=== PATIENT | male | born 1950 | race Caucasian/White ===

== ENCOUNTER 2022-10-01 22:36 | Inpatient (IN) | payer OTHER, SELFPAY ==
[2022-10-01] VITALS (7 sets, daily range): BP systolic 160–196; BP diastolic 70–74; PULSE 97–103; RESP 20–26; TEMP 39.1; O2SAT 96–99
--- NOTE | ~2022-10-01 | XR_ITS ---
Portable chest x-ray Comparison: None Clinical History: Dyspnea Findings: There is minimal haziness in the perihilar regions. No pleural effusion or pneumothorax. Cardiomediastinal silhouette is unremarkable. Bones and soft tissues are unremarkable. Impression: Probable minimal bibasilar pulmonary edema. Correlate clinically for infection. Reviewed, dictated and finalized at [facility]. Impression: Probable minimal bibasilar pulmonary edema. Correlate clinically for infection.
--- NOTE | ~2022-10-01 | XR_ITS ---
Portable chest x-ray Comparison: 10/01/2022 Clinical History: Dyspnea Findings: There is probable minimal bibasilar haziness. No pleural effusion or pneumothorax. Cardio mediastinal silhouette is stable. Bones and soft tissues are unremarkable. Impression: Minimal bibasilar haziness. Correlate for mild pulmonary edema. Reviewed, dictated and finalized at [facility]. Impression: Minimal bibasilar haziness. Correlate for mild pulmonary edema.
--- NOTE | ~2022-10-01 | XR_ITS ---
Portable chest x-ray Comparison: 10/04/2022 Clinical History: Shortness of breath Findings: Questionable minimal bibasilar pulmonary edema. Cardiomediastinal silhouette is stable. B ones and soft tissues are unremarkable. Impression: Questionable minimal bibasilar pulmonary edema. Reviewed, dictated and finalized at location . Impression: Questionable minimal bibasilar pulmonary edema.
[2022-10-01] MEDS: IPRATROPIUM BR 0.02% INH SOLN 0.5 MG/2.5 ML VIAL INHALATION (22:55)
[2022-10-01] MEDS: ALBUTEROL SULFATE NEB 2.5 MG/3 ML INH INHALATION (22:55)
[2022-10-01 23:02] LABS: Alveolar/Arterial O2 Gradient 190.1 mmHg; Base Excess ABG -2.4 mEq/l (+/-2.0); Fractional Inspired Oxygen 45 %; HCO3 ABG 22.2 mEq/l (22.0-26.0); Oxygen Content ABG 13.9 %vol (16.0-22.0); Oxygen Saturation ABG 96.7 % (95.0-100.0); Oxyhemoglobin 92.3 % THb (90.0-100.0); PCO2 ABG 37.6 mmHg (35.0-45.0); PO2 FiO2 Ratio Arterial Blood 1.96 %; Total Hemoglobin 10.6 g/dL (12.0-18.0)
[2022-10-01 23:03] LABS: Device NON-INVASIVE VENT; Non-Invasive Expiratory Pressure 6 CMH2O; Non-Invasive Inspiratory Pressure 12 CMH2O; Non-Invasive Vent Rate 14 /MIN; Site Drawn RIGHT BRACHIAL
[2022-10-01 23:13] LABS: Basophils Percent Auto 0.6 % (0.2-1.2); Eosinophils Percent Auto 0.3 % (0-4.4); Hematocrit 33.7 % (42.0-52.0); Hemoglobin 10.3 g/dL (14.0-18.0); Immature Granulocyte Absolute 0.02 K/mm3 (0.00-0.031); Immature Granulocyte Percent A 0.3 % (0-0.5); Lymphocytes Percent Auto 8.8 % (18.3-44.2); Mean Corpuscular HGB Conc 30.6 g/dl (32-36); Mean Corpuscular Hemoglobin 29.8 pg (26-34); Mean Corpuscular Volume 97.4 fl (80-100); Monocytes Absolute Auto 0.5 K/mm3 (0.1-0.6); Monocytes Percent Auto 6.8 % (2.6-8.5); Neutrophils Absolute Auto 5.7 K/mm3 (1.3-6.7); Neutrophils Percent Auto 83.2 % (45.5-73.1); Platelet Count Result 300 k/mm3 (150-375); Red Blood Count 3.46 M/mm3 (4.6-6.20); Red Cell Distribution Width 18.6 % (11.5-14.5); White Blood Count 6.8 K/mm3 (4.5-10.0)
--- NOTE | 2022-10-01 23:13 | ECG_ITS ---
Measurements Intervals [place] Rate: 99 P: 71 [place]: 197 QRS: 91 QRSD: 104 T: 256 QT: 362 QTc: 466 Interpretive Statements SINUS RHYTHM BORDERLINE RIGHT AXIS DEVIATION [QRS AXIS > 90] LEFT VENTRICULAR HYPERTROPHY WITH SECONDARY REPOLARIZATION ABNORMALITY ABNORMAL ECG NO PREVIOUS ECG AVAILABLE FOR COMPARISON Electronically Signed On 10-02-2022 12:59:41 CDT by Obdulio Lynn M.D.
[2022-10-01 23:25] LABS: Alanine Aminotransferase 26 U/L (6-50); Albumin Level 3.6 g/dL (3.5-5.1); Alkaline Phosphatase 107 U/L (38-126); Anion Gap 15 mmol/L (8-16); Aspartate Amino Transferase 38 U/L (17-59); Bilirubin,Total 0.3 mg/dL (0.2-1.3); Blood Urea Nitrogen 104 mg/dL (9-20); Carbon Dioxide 20 mmol/L (22-30); Chloride 97 mmol/L (98-107); Estimated CRCL calculation 6 ml/min; Estimated Glomerular Filt Rate 5; Glucose 152 mg/dL (65-110); Lactic Acid Reflex 0.9 mmol/L (0.7-2.0); Magnesium 2.4 mg/dL (1.6-2.3); Potassium 4.3 mmol/L (3.4-5.0); Sodium 132 mmol/L (137-145)
[2022-10-01 23:27] LABS: INR 1.1; Prothrombin Time 14.6 Seconds (11.1-14.7)
[2022-10-01 23:28] LABS: Partial Thromboplastin Time 36.7 SECONDS (22.3-36.8)
[2022-10-02] VITALS (29 sets, daily range): BP systolic 125–170; BP diastolic 53–69; PULSE 80–106; RESP 18–28; TEMP 36–36.9; O2SAT 93–100
[2022-10-02 00:05] LABS: Influenza A QL RT-PCR Negative (Negative); Influenza B QL RT-PCR Negative (Negative); SARS-CoV-2 RNA PCR Negative (Negative)
[2022-10-02 00:11] LABS: Procalcitonin 0.4 ng/mL
[2022-10-02 00:19] LABS: NT Pro B Type Natriuretic Pept 16300 pg/mL (19.9-100); Troponin I 0.052 ng/mL (0.000-0.034)
[2022-10-02 00:34] LABS: Appearance Urine Clear (Clear); Bacteria Urine None Seen /hpf; Bilirubin Urine Negative (Negative); Blood Urine Negative (Negative); Color Urine Yellow (Yellow); Glucose Urine UA 2+ mg/dL (Negative); Ketones Urine Negative (Negative); Leukocyte Esterase Ur Negative LEU/UL (Negative); Nitrate Urine Negative (Negative); Non Pathogenic Casts 0-2; Protein Urine 3+ mg/dL (Negative); Specific Grav Ur 1.014 (1.001-1.035); Squamous Epithelial Cell Urine None seen /hpf (Few); Urobilinogen Urine 0.2 mg/dL (<2.0); WBC Urine 0-5 /hpf
--- NOTE | 2022-10-02 00:40 | ED.GENADULT ---
HPI - General Adult General Chief complaint: Shortness of Breath/Dyspnea Stated complaint: SOB; MISSED HEMO-DIALYSIS; ON CPAP Time Seen by Provider: 10/01/22 22:38 History of Present Illness HPI narrative: Call patient 72-year-old gentleman who presents emergency department with chief complaint of shortness of breath Failure. Patient has history of peritoneal dialysis and only completed 1 hour of his cycle the patient reports that he started getting very short of breath when EMS was called and the patient was placed on CPAP in the field. The patient denies any chest pain and reports that his shortness of breath is improved on BiPAP. Related Data Home Medications Medication Instructions Recorded Confirmed amlodipine 5 mg tablet 5 mg PO BID 03/13/19 03/13/19 bupropion HCl 150 mg 24 hr tablet, 150 mg PO DAILY 03/13/19 03/13/19 extended release ferrous sulfate 325 mg (65 mg 325 mg PO BID 03/13/19 03/13/19 iron) tablet glipizide 5 mg tablet 5 mg PO BID 03/13/19 03/13/19 hydrochlorothiazide 25 mg tablet 12.5 mg PO TID 03/13/19 03/13/19 rosuvastatin 20 mg tablet 20 mg PO DAILY 03/13/19 03/13/19 tamsulosin 0.4 mg capsule 0.4 mg PO EVERY OTHER DAY 03/13/19 03/13/19 clonidine 0.2 mg/24 hr weekly 10/02/22 transdermal patch clopidogrel 75 mg tablet mg 10/02/22 furosemide 80 mg tablet mg 10/02/22 hydralazine 50 mg tablet mg 10/02/22 hydrocodone 5 mg-acetaminophen 325 tablet 10/02/22 mg tablet isosorbide mononitrate 30 mg mg PO 10/02/22 tablet,extended release 24 hr nifedipine 90 mg tablet,extended mg PO 10/02/22 release 24 hr sevelamer carbonate 800 mg tablet mg 10/02/22 Allergies Allergy/AdvReac Type Severity Reaction Status Date / Time Sulfa (Sulfonamide Allergy Swelling Verified 03/13/19 14:17 Antibiotics) Review of Systems Review of Systems: A 10 system review of systems was completed on the patient and is negative except for what is stated in the HPI. Nursing and ancillary documentation was reviewed. Exam Narrative: GENERAL: Well-appearing, well-nourished, and in no acute distress. HEAD: Normocephalic, atraumatic. EYES: PERRLA and EOMI. 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 Mucous membranes moist. NECK: Supple. CHEST: Clear to auscultation. No respiratory distress. HEART: Regular rate and rhythm. No murmur heard. Normal peripheral pulses. ABDOMEN: Soft, nontender, nondistended, normal active bowel sounds. EXTREMITIES: Normal range of motion. No edema. SKIN: Warm, dry, no rash. NEURO: No focal deficits. Alert and oriented x3. PSYCH: Normal mood and affect. Course Vital Signs Vital signs: Vital Signs Temperature 39.1 C H 10/01/22 22:33 Pulse Rate 100 10/01/22 22:33 Respiratory Rate 23 H 10/01/22 22:33 Blood Pressure 196/71 H 10/01/22 22:33 Oxygen Delivery CPAP 10/01/22 22:33 Temperature 39.1 C H 10/01/22 22:33 Pulse Rate 106 H 10/02/22 00:46 Respiratory Rate 28 H 10/02/22 00:46 Blood Pressure 154/68 H 10/02/22 00:46 Pulse Oximetry 98 10/02/22 00:46 Oxygen Delivery BiPAP 10/01/22 23:01 Fraction of Inspired Oxygen 40 10/01/22 23:01 Medical Decision Making Vital Signs Vital Signs: Vital Signs Temperature 39.1 C H 10/01/22 22:33 Pulse Rate 100 10/01/22 22:33 Respiratory Rate 23 H 10/01/22 22:33 Blood Pressure 196/71 H 10/01/22 22:33 Oxygen Delivery CPAP 10/01/22 22:33 Temperature 39.1 C H 10/01/22 22:33 Pulse Rate 106 H 10/02/22 00:46 Respiratory Rate 28 H 10/02/22 00:46 Blood Pressure 154/68 H 10/02/22 00:46 Pulse Oximetry 98 10/02/22 00:46 Oxygen Delivery BiPAP 10/01/22 23:01 Fraction of Inspired Oxygen 40 10/01/22 23:01 Lab Data 10/01/22 23:02 10/01/22 23:02 Labs: Lab Results 10/01/22 10/01/22 10/01/22 Range/Units 22:53 23:02 23:22 WBC 6.8 (4.5-10.0) K/mm3 RBC 3.4
[2022-10-02 00:43] LABS: Add Urine Microscopic? YES
[2022-10-02] MEDS: cefTRIAXone 2 GM/NS 100 ML 2 GM/100 ML BAG IVPB (01:12)
--- NOTE | 2022-10-02 01:51 | PM.IMHP ---
H&P: HPI History of Present Illness Date/Time: 10/02/22 01:51 Chief Complaint: Shortness of breath Narrative: 72-year-old male with a past medical history of diabetes mellitus, CHF, COPD with continued tobacco use, obstructive sleep apnea and end-stage renal disease on peritoneal dialysis who presented to the ER via EMS due to shortness of breath. Patient reports that he has had a couple of days of increasing shortness of breath associated with cough productive of white sputum. His symptoms acutely worsened about an hour prior to presentation while he was receiving dialysis. His had to terminate his dialysis session 1 hour in to a 9 hour session. She reports that he green dialysate bag during dialysis. He reports that he had similar symptoms to this recently and that the doctors gave him a dose of something through his IV and he was able to go home. He keeps asking me to give him a dose of something there is IV so that he can go home. I tried to tell patient he could not go home as he has a temperature of a 102.4?. He denies having any fevers or chills at home. He had checked his temperature just prior to starting his peritoneal dialysis is evening his temperature was 98.6?. He denies any nausea or vomiting. He reports a good appetite despite his end-stage renal disease. He has been having normal bowel movements he still produces about a L of urine a day. He denies any dysuria or changes in urinary frequency. He does continue to smoke. He does use a CPAP at night due to his history of obstructive sleep apnea. reports that his glucoses have been stable for the most part he has had a few ups and Downs. He does have a wound to his right ring finger. He got his finger caught in a rotor 2 weeks ago. The finger was stitched any followed up with a specialist at [place]. He has a bandage covering it. They have not noticed any drainage from his finger. He still has a couple of sutures in place. They stated that the surgeon did not tell him when to have the sutures removed. The patient receives all of this medical care at [facility]. He was brought to our facility due to his critical illness. Source of information is ER report and report from the patient and his (with the patient's permission). provides the majority of his medical history. Per patient provide the patient has been on peritoneal dialysis since November of 2020. 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 Fleming. He did try hemodialysis earlier this year but did not tolerate hemodialysis. His reports that he is independent in all activities of daily living and is quite active. Review of Systems Review of Systems: 12 systems were reviewed with pertinent positives and negatives per HPI. Except as documented in the HPI, all other systems were reviewed and are negative. FORMERLY [facility], [facility] Past Medical History Medical History (Updated 10/02/22 @ 08:21 by Naima Lundy DO) CHF (congestive heart failure) COPD (chronic obstructive pulmonary disease) Coronary artery disease With tortuous LAD, the patient's reports that the patient has 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 He states that he was originally supposed to have bypass surgery but they opted for stent placement. Diabetes mellitus ESRD (end stage renal disease) on dialysis due to DM Essential hypertension DAVON on CPAP Venous stasis dermatitis of both lower extremities Surgical History Surgical History (Updated 10/02/22 @ 08:21 by Naima Lundy DO) History of eye enucleation left History of heart artery stent (~03/2022) Peritoneal dialysis catheter in place Family History Family History (Updated 10/02/22 @ 02:04 by Naima Lundy DO) Other Diabetes mellitus Hypertension Social History Social History (Updated 10/02/22 @ 07:46 by Naima Lundy DO) Social History: The patient lives in [place] with
[2022-10-02] MEDS: AZITHROMYCIN 500 MG/NS 250 ML 500 MG/250 ML BAG 250 MG IVPB (01:54)
--- NOTE | 2022-10-02 03:02 | ADMGEN ---
This patient, Obinna Murphy, was admitted to IMU Room 214-01. Patient/family oriented to hospital policies and general routines including ID bracelet, bed and alarms, visiting hours, pain management, procedures, bathroom and other care routines, personal items, smoking policy, room service/diet, and visiting hours. Information on how to activate the Rapid Response Team has been discussed. Patient/Family are encouraged to report perceived risks to care and to ask questions if they do not understand what they are told or what they should do.
[2022-10-02] MEDS: FUROSEMIDE INJ 40 MG/4 ML VIAL IV PUSH ×3 (04:34→16:40)
[2022-10-02] MEDS: IPRATROPIUM BR 0.02% INH SOLN 0.5 MG/2.5 ML VIAL INHALATION ×5 (04:38→21:03)
[2022-10-02] MEDS: ALBUTEROL SULFATE NEB 2.5 MG/3 ML INH INHALATION ×5 (04:38→21:03)
[2022-10-02] MEDS: SEVELAMER CARBONATE 800 MG TABLET PO ×3 (08:45→16:40)
[2022-10-02] MEDS: TAMSULOSIN HCL 0.4 MG CAPSULE PO (08:46)
[2022-10-02] MEDS: FERROUS SULFATE 325 MG TABLET DR PO ×2 (08:46→16:40)
[2022-10-02] MEDS: HEPARIN SODIUM 5,000 UNITS/ML VIAL 5000 UNITS SUB-Q ×2 (08:48→20:15)
[2022-10-02 09:12] LABS: Hematocrit 28.1 % (42.0-52.0); Hemoglobin 8.4 g/dL (14.0-18.0); Mean Corpuscular HGB Conc 29.9 g/dl (32-36); Mean Corpuscular Hemoglobin 29.1 pg (26-34); Mean Corpuscular Volume 97.2 fl (80-100); Mean Platelet Volume 10.2 fl (7.4-10.4); Platelet Count Result 295 k/mm3 (150-375); Red Blood Count 2.89 M/mm3 (4.6-6.20); Red Cell Distribution Width 18.5 % (11.5-14.5)
[2022-10-02 09:17] LABS: Anion Gap 14 mmol/L (8-16); Blood Urea Nitrogen 105 mg/dL (9-20); Calcium 6.7 mg/dL (8.4-10.2); Carbon Dioxide 18 mmol/L (22-30); Chloride 100 mmol/L (98-107); Estimated CRCL calculation 6 ml/min; Estimated Glomerular Filt Rate 5; Glucose 152 mg/dL (65-110); Magnesium 2.4 mg/dL (1.6-2.3); Phosphorus 7.5 mg/dL (2.5-4.5); Potassium 4.6 mmol/L (3.4-5.0); Sodium 132 mmol/L (137-145)
[2022-10-02] MEDS: NEOMYCIN/POLYMYXIN/BACITRACIN OINTMENT 15 GM TUBE 1 APPLIC TOPICAL (10:40)
--- NOTE | 2022-10-02 12:52 | P.CONNP_ITS ---
Assessment and Plan Assessment and plan (1) End stage renal disease: Code(s): N18.6 - End stage renal disease Status: Chronic Assessment and Plan: * resume CCPD tonight * follow electrolytes, volume status, and clearance * reasonable residual renal function - continue diuretics (2) Sepsis: Qualifiers: Acute respiratory failure type: with hypoxia Sepsis acute organ dysfunction status: with acute organ dysfunction Sepsis type: sepsis due to unspecified organism Severe sepsis acute organ dysfunction type: acute respiratory failure Severe sepsis shock status: without septic shock Qualified Code(s): A41.9 - Sepsis, unspecified organism; R65.20 - Severe sepsis without septic shock; J96.01 - Acute respiratory failure with hypoxia Code(s): A41.9 - Sepsis, unspecified organism Status: Acute Assessment and Plan: * as evidence by fever tachypnea, tachycardia and respiratory failure with associated hypoxia on admission * presumed source is pneumonia (based on imaging to date) * follow culture data * check PD fluid (although patient and report fluid was clear) * on antibiotics (3) Acute respiratory failure with hypoxia: Code(s): J96.01 - Acute respiratory failure with hypoxia Status: Acute Assessment and Plan: * suspet multifactorial: * COPD exacerbation * pneumonia * lnown history of DAVON * mild component of fluid issues * supplemental oxygen * BiPAP support as needed * continue current therapy (4) Pneumonia: Qualifiers: Laterality: bilateral Lung location: lower lobe of lung Pneumonia type: due to unspecified organism Qualified Code(s): J18.9 - Pneumonia, unspecified organism Code(s): J18.9 - Pneumonia, unspecified organism Status: Acute Assessment and Plan: * based on admission imaging and clinical symptoms * respiratory support * IV antibiotucs * follow culture data (5) Hypertension: Code(s): I10 - Essential (primary) hypertension Status: Chronic Assessment and Plan: * reasonable control at this time * follow trend of hemodynamics (6) Anemia: Code(s): D64.9 - Anemia, unspecified Status: Chronic Assessment and Plan: * due to ESRD and worsened by acute illness * Epogen 3x/week while hospitalized * follow trend of H/H (7) Diabetes mellitus: Qualifiers: Chronic kidney disease stage: on chronic dialysis Diabetes mellitus complication detail: with chronic kidney disease Diabetes mellitus complication status: with kidney complications Diabetes mellitus meterman insulin use: with meterman use Diabetes mellitus type: type 2 Qualified Code(s): E11.22 - Type 2 diabetes mellitus with diabetic chronic kidney disease; N18.6 - End stage renal disease; Z79.4 - intermediate frame tender (current) use of insulin; Z99.2 - Dependence on renal dialysis Code(s): E11.9 - Type 2 diabetes mellitus without complications Status: Chronic Assessment and Plan: * follow accu-cheks * glycemic control per hospitalists Long extensive discussion (> 20 min) with the patient as well as her at bedside regarding the ongoing medical issues/problems at this time and the current plan of care/interventions being done in an effort to optimize his overall clinical status. They both appeared to voice understanding. I will continue follow the patient with you while he may need hospitalized make further recommendations as needed. Thank you for allowing me to participate in the care of this patient.
--- NOTE | 2022-10-02 12:52 | PM.CNNEP ---
Assessment and Plan Assessment and plan (1) End stage renal disease: Code(s): N18.6 - End stage renal disease Status: Chronic Assessment and Plan: resume CCPD tonight follow electrolytes, volume status, and clearance reasonable residual renal function - continue diuretics (2) Sepsis: Qualifiers: Acute respiratory failure type: with hypoxia Sepsis acute organ dysfunction status: with acute organ dysfunction Sepsis type: sepsis due to unspecified organism Severe sepsis acute organ dysfunction type: acute respiratory failure Severe sepsis shock status: without septic shock Qualified Code(s): A41.9 - Sepsis, unspecified organism; R65.20 - Severe sepsis without septic shock; J96.01 - Acute respiratory failure with hypoxia Code(s): A41.9 - Sepsis, unspecified organism Status: Acute Assessment and Plan: as evidence by fever tachypnea, tachycardia and respiratory failure with associated hypoxia on admission presumed source is pneumonia (based on imaging to date) follow culture data check PD fluid (although patient and report fluid was clear) on antibiotics (3) Acute respiratory failure with hypoxia: Code(s): J96.01 - Acute respiratory failure with hypoxia Status: Acute Assessment and Plan: suspet multifactorial: COPD exacerbation pneumonia lnown history of DAVON mild component of fluid issues supplemental oxygen BiPAP support as needed continue current therapy (4) Pneumonia: Qualifiers: Laterality: bilateral Lung location: lower lobe of lung Pneumonia type: due to unspecified organism Qualified Code(s): J18.9 - Pneumonia, unspecified organism Code(s): J18.9 - Pneumonia, unspecified organism Status: Acute Assessment and Plan: based on admission imaging and clinical symptoms respiratory support IV antibiotucs follow culture data (5) Hypertension: Code(s): I10 - Essential (primary) hypertension Status: Chronic Assessment and Plan: reasonable control at this time follow trend of hemodynamics (6) Anemia: Code(s): D64.9 - Anemia, unspecified Status: Chronic Assessment and Plan: due to ESRD and worsened by acute illness Epogen 3x/week while hospitalized follow trend of H/H (7) Diabetes mellitus: Qualifiers: Chronic kidney disease stage: on chronic dialysis Diabetes mellitus complication detail: with chronic kidney disease Diabetes mellitus complication status: with kidney complications Diabetes mellitus group home insulin use: with termite exterminator helper use Diabetes mellitus type: type 2 Qualified Code(s): E11.22 - Type 2 diabetes mellitus with diabetic chronic kidney disease; N18.6 - End stage renal disease; Z79.4 - USP (current) use of insulin; Z99.2 - Dependence on renal dialysis Code(s): E11.9 - Type 2 diabetes mellitus without complications Status: Chronic Assessment and Plan: follow accu-cheks glycemic control per hospitalists Long extensive discussion (> 20 min) with the patient as well as her at bedside regarding the ongoing medical issues/problems at this time and the current plan of care/interventions being done in an effort to optimize his overall clinical status. They both appeared to voice understanding. I will continue follow the patient with you while he may need hospitalized make further recommendations as needed. Thank you for allowing me to participate in the care of this patient. History of Present Illness Reason for Consult Consult date: 10/02/22 Reason for consult: end stage renal disease Chief Complaint Chief complaint: Dyspnea/Febrile Illness/Peritoneal Dialysis History of Present Illness Narrative: The patient is a 72-year-old male with past medical history as outlined below presented to [facility] Emergency room for further evaluation of shortness of breath. T
[2022-10-02] MEDS: INSULIN ASPART (*BKC) 100 UNITS/ML SUB-Q (16:40)
--- NOTE | 2022-10-02 17:26 | WPDPN ---
Progress Note: A&P Assessment and Plan (1) Sepsis: Qualifiers: Acute respiratory failure type: with hypoxia Sepsis acute organ dysfunction status: with acute organ dysfunction Sepsis type: sepsis due to unspecified organism Severe sepsis acute organ dysfunction type: acute respiratory failure Severe sepsis shock status: without septic shock Qualified Code(s): A41.9 - Sepsis, unspecified organism; R65.20 - Severe sepsis without septic shock; J96.01 - Acute respiratory failure with hypoxia Code(s): A41.9 - Sepsis, unspecified organism Status: Acute (2) Acute respiratory failure with hypoxia: Code(s): J96.01 - Acute respiratory failure with hypoxia Status: Acute (3) Pneumonia: Qualifiers: Laterality: bilateral Lung location: lower lobe of lung Pneumonia type: due to unspecified organism Qualified Code(s): J18.9 - Pneumonia, unspecified organism Code(s): J18.9 - Pneumonia, unspecified organism Status: Acute (4) Peritoneal dialysis catheter in place: Code(s): Z99.2 - Dependence on renal dialysis Status: Acute (5) COPD exacerbation: Code(s): J44.1 - Chronic obstructive pulmonary disease with (acute) exacerbation Status: Acute (6) DAVON on CPAP: Code(s): G47.33 - Obstructive sleep apnea (adult) (pediatric) Status: Acute (7) Diabetes mellitus: Qualifiers: Chronic kidney disease stage: on chronic dialysis Diabetes mellitus complication detail: with chronic kidney disease Diabetes mellitus complication status: with kidney complications Diabetes mellitus nursing administrator insulin use: with retirement use Diabetes mellitus type: type 2 Qualified Code(s): E11.22 - Type 2 diabetes mellitus with diabetic chronic kidney disease; N18.6 - End stage renal disease; Z79.4 - [facility] (current) use of insulin; Z99.2 - Dependence on renal dialysis Code(s): E11.9 - Type 2 diabetes mellitus without complications Status: Chronic (8) ESRD (end stage renal disease) on dialysis: Code(s): N18.6 - End stage renal disease; Z99.2 - Dependence on renal dialysis Status: Acute Plan Patient presented with respiratory distress and was found to be in acute hypoxic respiratory failure. He was febrile with T-max of 102.4?. He fit sepsis criteria with fever tachypnea, tachycardia and respiratory failure. Chest x-ray was personally reviewed and demonstrated opacities in the lower lobes likely consistent with pneumonia given patient's reported cough and fever. Patient was started on empiric antibiotic therapy with Rocephin and azithromycin. Blood cultures were obtained in the ER. Will continue antibiotic therapy. Will hold off on giving the patient any IV fluids given his history of heart failure. The patient may have some component of fluid overload given that was unable to complete his dialysis session. Will switch is p.o. Lasix to IV. Will monitor fluid status closely. Patient does have a history of diabetes but is relatively euglycemic with glucose levels within target value for hospitalized patients with glucoses of 156. Will place on low-dose sliding scale insulin if needed for hyperglycemia. Hypoglycemia protocol has also been ordered. Patient was placed on a diabetic consistent carbohydrate diet with 1.5 L fluid restriction. Nephrology has been consulted for management of the patient's peritoneal dialysis. Electrolyte panel is currently relatively stable. Will continue to monitor and repeat BMP in a.m.. The patient does have an elevated troponin. Troponin elevation likely due to patient's end-stage renal disease, some component of heart failure and stress from acute hypoxic respiratory failure as well as sepsis in the patient with known history of multivessel coronary disease. Patient is being monitored in IMU due to need for BiPAP and elevated troponin. Patient has been admitted as observation status. 10/02/2022 interval hi
[2022-10-02 18:02] LABS: Glucose Point of Care 305 mg/dl (65-105)
[2022-10-02 20:09] LABS: Glucose Point of Care 123 mg/dl (65-105)
[2022-10-02] MEDS: hydrALAZINE HCL 50 MG TABLET PO (20:15)
[2022-10-02] MEDS: ISOSORBIDE MONONITRATE 30 MG TAB.ER.24H PO (20:15)
[2022-10-03] VITALS (28 sets, daily range): BP systolic 155–214; BP diastolic 67–84; PULSE 69–103; RESP 12–24; TEMP 36.3–37.2; O2SAT 93–100
[2022-10-03] MEDS: cefTRIAXone 2 GM/NS 100 ML 2 GM/100 ML BAG IVPB (00:41)
[2022-10-03] MEDS: ALBUTEROL SULFATE NEB 2.5 MG/3 ML INH INHALATION ×6 (01:18→20:38)
[2022-10-03] MEDS: IPRATROPIUM BR 0.02% INH SOLN 0.5 MG/2.5 ML VIAL INHALATION ×6 (01:19→20:38)
[2022-10-03] MEDS: AZITHROMYCIN 500 MG/NS 250 ML 500 MG/250 ML BAG 250 MG IVPB (01:47)
[2022-10-03] MEDS: HEPARIN SODIUM 5,000 UNITS/ML VIAL 5000 UNITS SUB-Q ×2 (09:00→20:24)
[2022-10-03] MEDS: FUROSEMIDE INJ 40 MG/4 ML VIAL IV PUSH (09:00)
[2022-10-03] MEDS: SEVELAMER CARBONATE 800 MG TABLET PO ×3 (09:00→17:34)
[2022-10-03] MEDS: FERROUS SULFATE 325 MG TABLET DR PO ×2 (09:01→17:31)
[2022-10-03] MEDS: TAMSULOSIN HCL 0.4 MG CAPSULE PO (09:01)
[2022-10-03] MEDS: NEOMYCIN/POLYMYXIN/BACITRACIN OINTMENT 15 GM TUBE 1 APPLIC TOPICAL (09:01)
[2022-10-03 11:01] LABS: Hematocrit 28.6 % (42.0-52.0); Hemoglobin 8.8 g/dL (14.0-18.0); Mean Corpuscular HGB Conc 30.8 g/dl (32-36); Mean Corpuscular Hemoglobin 29.9 pg (26-34); Mean Corpuscular Volume 97.3 fl (80-100); Mean Platelet Volume 9.8 fl (7.4-10.4); Platelet Count Result 262 k/mm3 (150-375); Red Blood Count 2.94 M/mm3 (4.6-6.20); Red Cell Distribution Width 18.4 % (11.5-14.5); White Blood Count 7.2 K/mm3 (4.5-10.0)
[2022-10-03 11:11] LABS: Albumin Level 3.4 g/dL (3.5-5.1); Anion Gap 19 mmol/L (8-16); Blood Urea Nitrogen 115 mg/dL (9-20); Calcium 6.6 mg/dL (8.4-10.2); Carbon Dioxide 20 mmol/L (22-30); Chloride 95 mmol/L (98-107); Estimated CRCL calculation 5 ml/min; Estimated Glomerular Filt Rate 5; Glucose 363 mg/dL (65-110); Magnesium 2.3 mg/dL (1.6-2.3); Phosphorus 9.2 mg/dL (2.5-4.5); Potassium 4.2 mmol/L (3.4-5.0); Sodium 134 mmol/L (137-145)
[2022-10-03] MEDS: EPOETIN ALFA 10,000 UNITS/ML VIAL 10000 UNITS SUB-Q (11:20)
[2022-10-03] MEDS: methylPREDNISolone SOD SUCC 40 MG VIAL IV PUSH (11:20)
[2022-10-03] MEDS: INSULIN ASPART (*BKC) 100 UNITS/ML SUB-Q (12:14)
[2022-10-03 12:15] LABS: Glucose Point of Care 378 mg/dl (65-105)
--- NOTE | 2022-10-03 14:28 | WPDPN ---
Progress Note: A&P Assessment and Plan (1) Sepsis: Qualifiers: Sepsis type: sepsis due to unspecified organism Sepsis acute organ dysfunction status: with acute organ dysfunction Severe sepsis acute organ dysfunction type: acute respiratory failure Acute respiratory failure type: with hypoxia Severe sepsis shock status: without septic shock Qualified Code(s): A41.9 - Sepsis, unspecified organism; R65.20 - Severe sepsis without septic shock; J96.01 - Acute respiratory failure with hypoxia Code(s): A41.9 - Sepsis, unspecified organism Status: Acute (2) Acute respiratory failure with hypoxia: Code(s): J96.01 - Acute respiratory failure with hypoxia Status: Acute (3) Pneumonia: Qualifiers: Pneumonia type: due to unspecified organism Laterality: bilateral Lung location: lower lobe of lung Qualified Code(s): J18.9 - Pneumonia, unspecified organism Code(s): J18.9 - Pneumonia, unspecified organism Status: Acute (4) Peritoneal dialysis catheter in place: Code(s): Z99.2 - Dependence on renal dialysis Status: Acute (5) COPD exacerbation: Code(s): J44.1 - Chronic obstructive pulmonary disease with (acute) exacerbation Status: Acute (6) DAVON on CPAP: Code(s): G47.33 - Obstructive sleep apnea (adult) (pediatric) Status: Acute (7) Diabetes mellitus: Qualifiers: Diabetes mellitus type: type 2 Diabetes mellitus mcfp insulin use: with mcfp use Diabetes mellitus complication status: with kidney complications Diabetes mellitus complication detail: with chronic kidney disease Chronic kidney disease stage: on chronic dialysis Qualified Code(s): E11.22 - Type 2 diabetes mellitus with diabetic chronic kidney disease; N18.6 - End stage renal disease; Z79.4 - care home (current) use of insulin; Z99.2 - Dependence on renal dialysis Code(s): E11.9 - Type 2 diabetes mellitus without complications Status: Chronic (8) ESRD (end stage renal disease) on dialysis: Code(s): N18.6 - End stage renal disease; Z99.2 - Dependence on renal dialysis Status: Acute Plan Patient presented with respiratory distress and was found to be in acute hypoxic respiratory failure. He was febrile with T-max of 102.4?. He fit sepsis criteria with fever tachypnea, tachycardia and respiratory failure. Chest x-ray was personally reviewed and demonstrated opacities in the lower lobes likely consistent with pneumonia given patient's reported cough and fever. Patient was started on empiric antibiotic therapy with Rocephin and azithromycin. Blood cultures were obtained in the ER. Will continue antibiotic therapy. Will hold off on giving the patient any IV fluids given his history of heart failure. The patient may have some component of fluid overload given that was unable to complete his dialysis session. Will switch is p.o. Lasix to IV. Will monitor fluid status closely. Patient does have a history of diabetes but is relatively euglycemic with glucose levels within target value for hospitalized patients with glucoses of 156. Will place on low-dose sliding scale insulin if needed for hyperglycemia. Hypoglycemia protocol has also been ordered. Patient was placed on a diabetic consistent carbohydrate diet with 1.5 L fluid restriction. Nephrology has been consulted for management of the patient's peritoneal dialysis. Electrolyte panel is currently relatively stable. Will continue to monitor and repeat BMP in a.m.. The patient does have an elevated troponin. Troponin elevation likely due to patient's end-stage renal disease, some component of heart failure and stress from acute hypoxic respiratory failure as well as sepsis in the patient with known history of multivessel coronary disease. Patient is being monitored in IMU due to need for BiPAP and elevated troponin. Patient has been admitted as observation status. 10/03/2022 interval hi
--- NOTE | 2022-10-03 15:06 | P.PNNP_ITS ---
Progress Note: A&P Assessment and Plan (1) End stage renal disease: Code(s): N18.6 - End stage renal disease Status: Chronic Assessment and Plan: * Getting dialysis. * Volume status looks okay. * reasonable residual renal function - continue diuretics * Electrolytes okay (2) Sepsis: Qualifiers: Acute respiratory failure type: with hypoxia Sepsis acute organ dysfunction status: with acute organ dysfunction Sepsis type: sepsis due to unspecified organism Severe sepsis acute organ dysfunction type: acute respiratory failure Severe sepsis shock status: without septic shock Qualified Code(s): A41.9 - Sepsis, unspecified organism; R65.20 - Severe sepsis without septic shock; J96.01 - Acute respiratory failure with hypoxia Code(s): A41.9 - Sepsis, unspecified organism Status: Acute Assessment and Plan: * as evidence by fever tachypnea, tachycardia and respiratory failure with associated hypoxia on admission * presumed source is pneumonia (based on imaging to date) * blood cultures negative so far * check PD fluid (although patient and report fluid was clear) * this is still pending * on antibiotics (3) Acute respiratory failure with hypoxia: Code(s): J96.01 - Acute respiratory failure with hypoxia Status: Acute Assessment and Plan: * suspet multifactorial: * COPD exacerbation * pneumonia * lnown history of DAVON * mild component of fluid issues * supplemental oxygen * BiPAP support as needed * continue current therapy (4) Pneumonia: Qualifiers: Laterality: bilateral Lung location: lower lobe of lung Pneumonia type: due to unspecified organism Qualified Code(s): J18.9 - Pneumonia, unspecified organism Code(s): J18.9 - Pneumonia, unspecified organism Status: Acute Assessment and Plan: * based on admission imaging and clinical symptoms * respiratory support * on Zithromax and ceftriaxone * cultures negative so far (5) Hypertension: Code(s): I10 - Essential (primary) hypertension Status: Chronic Assessment and Plan: * blood pressure is high with systolic in the 150s to 180s. * He is on hydralazine 50 mg at hs. * No allergies to Guillermo inhibitors. Will start lisinopril * (6) Anemia: Code(s): D64.9 - Anemia, unspecified Status: Chronic Assessment and Plan: * hb 8.8 * Epogen 3x/week while hospitalized * (7) Diabetes mellitus: Qualifiers: Chronic kidney disease stage: on chronic dialysis Diabetes mellitus complication detail: with chronic kidney disease Diabetes mellitus complication status: with kidney complications Diabetes mellitus terminal worker insulin use: with mcc use Diabetes mellitus type: type 2 Qualified Code(s): E11.22 - Type 2 diabetes mellitus with diabetic chronic kidney disease; N18.6 - End stage renal disease; Z79.4 - halfway (current) use of insulin; Z99.2 - Dependence on renal dialysis Code(s): E11.9 - Type 2 diabetes mellitus without complications Status: Chronic Assessment and Plan: * follow accu-cheks * glycemic control per hospitalists Subjective Date/time seen: 10/03/22 15:06 Interval history: Obinna is very weak. Somewhat short of breath but not struggling right now. is in the room. Review of Systems Cardiovascular: Cardiovascular: Reports no additional cardiovascular complaints Respiratory: Respiratory: Rep
--- NOTE | 2022-10-03 15:06 | PM.PNNEP ---
Progress Note: A&P Assessment and Plan (1) End stage renal disease: Code(s): N18.6 - End stage renal disease Status: Chronic Assessment and Plan: Getting dialysis. Volume status looks okay. reasonable residual renal function - continue diuretics Electrolytes okay (2) Sepsis: Qualifiers: Acute respiratory failure type: with hypoxia Sepsis acute organ dysfunction status: with acute organ dysfunction Sepsis type: sepsis due to unspecified organism Severe sepsis acute organ dysfunction type: acute respiratory failure Severe sepsis shock status: without septic shock Qualified Code(s): A41.9 - Sepsis, unspecified organism; R65.20 - Severe sepsis without septic shock; J96.01 - Acute respiratory failure with hypoxia Code(s): A41.9 - Sepsis, unspecified organism Status: Acute Assessment and Plan: as evidence by fever tachypnea, tachycardia and respiratory failure with associated hypoxia on admission presumed source is pneumonia (based on imaging to date) blood cultures negative so far check PD fluid (although patient and report fluid was clear) this is still pending on antibiotics (3) Acute respiratory failure with hypoxia: Code(s): J96.01 - Acute respiratory failure with hypoxia Status: Acute Assessment and Plan: suspet multifactorial: COPD exacerbation pneumonia lnown history of DAVON mild component of fluid issues supplemental oxygen BiPAP support as needed continue current therapy (4) Pneumonia: Qualifiers: Laterality: bilateral Lung location: lower lobe of lung Pneumonia type: due to unspecified organism Qualified Code(s): J18.9 - Pneumonia, unspecified organism Code(s): J18.9 - Pneumonia, unspecified organism Status: Acute Assessment and Plan: based on admission imaging and clinical symptoms respiratory support on Zithromax and ceftriaxone cultures negative so far (5) Hypertension: Code(s): I10 - Essential (primary) hypertension Status: Chronic Assessment and Plan: blood pressure is high with systolic in the 150s to 180s. He is on hydralazine 50 mg at hs. No allergies to Guillermo inhibitors. Will start lisinopril (6) Anemia: Code(s): D64.9 - Anemia, unspecified Status: Chronic Assessment and Plan: hb 8.8 Epogen 3x/week while hospitalized (7) Diabetes mellitus: Qualifiers: Chronic kidney disease stage: on chronic dialysis Diabetes mellitus complication detail: with chronic kidney disease Diabetes mellitus complication status: with kidney complications Diabetes mellitus termite control representative insulin use: with penitentiary use Diabetes mellitus type: type 2 Qualified Code(s): E11.22 - Type 2 diabetes mellitus with diabetic chronic kidney disease; N18.6 - End stage renal disease; 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 Somewhat short of breath but not struggling right now. is in the room. Review of Systems Cardiovascular: Cardiovascular: Reports no additional cardiovascular complaints Respiratory: Respiratory: Reports no additional respiratory complaints Gastrointestinal: Gastrointestinal: Reports no additional gastrointestinal complaints Genitourinary: Genitourinary: Reports no additional male genitourinary complaints Exam Narrative: WDWN in NAD skin no rash head ncat lungs clear cor reg no rub abd BS+ nontender and soft ext no edema. Objective Data Vital Signs Vital Signs: Vital Signs - 24 hr 10/02/22 16:51 10/02/22 17:05 10/02/22 16:00 Temperature Pulse Rate 88
[2022-10-03 15:54] LABS: Glucose Point of Care 142 mg/dl (65-105)
[2022-10-03 16:40] LABS: Glucose Point of Care 194 mg/dl (65-105)
[2022-10-03] MEDS: hydrALAZINE HCL 50 MG TABLET PO (20:24)
[2022-10-03] MEDS: ISOSORBIDE MONONITRATE 30 MG TAB.ER.24H PO (20:25)
[2022-10-03 20:27] LABS: Glucose Point of Care 379 mg/dl (65-105)
[2022-10-03 20:27] LABS: Glucose Point of Care 399 mg/dl (65-105)
[2022-10-03] MEDS: BUDESONIDE RESPULE NEB 0.5 MG/2 ML AMP INHALATION (20:37)
[2022-10-04] VITALS (27 sets, daily range): BP systolic 148–179; BP diastolic 64–87; PULSE 65–132; RESP 16–20; TEMP 36.2–36.6; O2SAT 93–99
[2022-10-04] MEDS: IPRATROPIUM BR 0.02% INH SOLN 0.5 MG/2.5 ML VIAL INHALATION ×6 (01:08→20:43)
[2022-10-04] MEDS: ALBUTEROL SULFATE NEB 2.5 MG/3 ML INH INHALATION ×5 (01:08→16:53)
[2022-10-04] MEDS: AZITHROMYCIN 500 MG/NS 250 ML 500 MG/250 ML BAG 250 MG IVPB (01:27)
[2022-10-04] MEDS: cefTRIAXone 2 GM/NS 100 ML 2 GM/100 ML BAG IVPB (01:27)
[2022-10-04 05:11] LABS: Hematocrit 29.3 % (42.0-52.0); Hemoglobin 8.8 g/dL (14.0-18.0); Mean Corpuscular Hemoglobin 29.4 pg (26-34); Mean Platelet Volume 9.7 fl (7.4-10.4); Platelet Count Result 253 k/mm3 (150-375); Red Blood Count 2.99 M/mm3 (4.6-6.20); Red Cell Distribution Width 17.8 % (11.5-14.5); White Blood Count 4.9 K/mm3 (4.5-10.0)
[2022-10-04 05:25] LABS: Albumin Level 3.2 g/dL (3.5-5.1); Anion Gap 12 mmol/L (8-16); Blood Urea Nitrogen 111 mg/dL (9-20); Calcium 7.8 mg/dL (8.4-10.2); Carbon Dioxide 22 mmol/L (22-30); Chloride 97 mmol/L (98-107); Estimated CRCL calculation 5 ml/min; Estimated Glomerular Filt Rate 5; Glucose 244 mg/dL (65-110); Magnesium 2.5 mg/dL (1.6-2.3); Phosphorus 9.2 mg/dL (2.5-4.5); Potassium 3.8 mmol/L (3.4-5.0); Sodium 131 mmol/L (137-145)
[2022-10-04] MEDS: SEVELAMER CARBONATE 800 MG TABLET PO ×3 (07:44→17:12)
[2022-10-04 07:57] LABS: Glucose Point of Care 174 mg/dl (65-105)
[2022-10-04] MEDS: FERROUS SULFATE 325 MG TABLET DR PO ×2 (08:36→17:11)
[2022-10-04] MEDS: FUROSEMIDE INJ 40 MG/4 ML VIAL IV PUSH (08:36)
[2022-10-04] MEDS: BUDESONIDE RESPULE NEB 0.5 MG/2 ML AMP INHALATION ×2 (08:36→20:43)
[2022-10-04] MEDS: amLODIPine BESYLATE 2.5 MG TABLET PO (08:36)
[2022-10-04] MEDS: HEPARIN SODIUM 5,000 UNITS/ML VIAL 5000 UNITS SUB-Q ×2 (08:37→20:27)
[2022-10-04] MEDS: TAMSULOSIN HCL 0.4 MG CAPSULE PO (08:39)
[2022-10-04] MEDS: NEOMYCIN/POLYMYXIN/BACITRACIN OINTMENT 15 GM TUBE 1 APPLIC TOPICAL (10:19)
[2022-10-04 11:29] LABS: Glucose Point of Care 379 mg/dl (65-105)
[2022-10-04] MEDS: INSULIN ASPART (*BKC) 100 UNITS/ML SUB-Q (11:29)
--- NOTE | 2022-10-04 12:30 | WPDPN ---
Progress Note: A&P Assessment and Plan (1) Sepsis: Qualifiers: Acute respiratory failure type: with hypoxia Sepsis acute organ dysfunction status: with acute organ dysfunction Sepsis type: sepsis due to unspecified organism Severe sepsis acute organ dysfunction type: acute respiratory failure Severe sepsis shock status: without septic shock Qualified Code(s): A41.9 - Sepsis, unspecified organism; R65.20 - Severe sepsis without septic shock; J96.01 - Acute respiratory failure with hypoxia Code(s): A41.9 - Sepsis, unspecified organism Status: Acute (2) Acute respiratory failure with hypoxia: Code(s): J96.01 - Acute respiratory failure with hypoxia Status: Acute (3) Pneumonia: Qualifiers: Laterality: bilateral Lung location: lower lobe of lung Pneumonia type: due to unspecified organism Qualified Code(s): J18.9 - Pneumonia, unspecified organism Code(s): J18.9 - Pneumonia, unspecified organism Status: Acute (4) Peritoneal dialysis catheter in place: Code(s): Z99.2 - Dependence on renal dialysis Status: Acute (5) COPD exacerbation: Code(s): J44.1 - Chronic obstructive pulmonary disease with (acute) exacerbation Status: Acute (6) DAVON on CPAP: Code(s): G47.33 - Obstructive sleep apnea (adult) (pediatric) Status: Acute (7) Diabetes mellitus: Qualifiers: Chronic kidney disease stage: on chronic dialysis Diabetes mellitus complication detail: with chronic kidney disease Diabetes mellitus complication status: with kidney complications Diabetes mellitus ocean transportation intermediary insulin use: with fpc use Diabetes mellitus type: type 2 Qualified Code(s): E11.22 - Type 2 diabetes mellitus with diabetic chronic kidney disease; N18.6 - End stage renal disease; Z79.4 - nursing home (current) use of insulin; Z99.2 - Dependence on renal dialysis Code(s): E11.9 - Type 2 diabetes mellitus without complications Status: Chronic (8) ESRD (end stage renal disease) on dialysis: Code(s): N18.6 - End stage renal disease; Z99.2 - Dependence on renal dialysis Status: Acute Plan Patient presented with respiratory distress and was found to be in acute hypoxic respiratory failure. He was febrile with T-max of 102.4?. He fit sepsis criteria with fever tachypnea, tachycardia and respiratory failure. Chest x-ray was personally reviewed and demonstrated opacities in the lower lobes likely consistent with pneumonia given patient's reported cough and fever. Patient was started on empiric antibiotic therapy with Rocephin and azithromycin. Blood cultures were obtained in the ER. Will continue antibiotic therapy. Will hold off on giving the patient any IV fluids given his history of heart failure. The patient may have some component of fluid overload given that was unable to complete his dialysis session. Will switch is p.o. Lasix to IV. Will monitor fluid status closely. Patient does have a history of diabetes but is relatively euglycemic with glucose levels within target value for hospitalized patients with glucoses of 156. [address] place on low-dose sliding scale insulin if needed for hyperglycemia. Hypoglycemia protocol has also been ordered. Patient was placed on a diabetic consistent carbohydrate diet with 1.5 L fluid restriction. Nephrology has been consulted for management of the patient's peritoneal dialysis. Electrolyte panel is currently relatively stable. Will continue to monitor and repeat BMP in a.m.. The patient does have an elevated troponin. Troponin elevation likely due to patient's end-stage renal disease, some component of heart failure and stress from acute hypoxic respiratory failure as well as sepsis in the patient with known history of multivessel coronary disease. Patient is being monitored in IMU due to need for BiPAP and elevated troponin. 10/04/2022 interval history: 72-year-old male with history of end-stage r
--- NOTE | 2022-10-04 13:55 | P.PNNP_ITS ---
Progress Note: A&P Assessment and Plan (1) End stage renal disease: Code(s): N18.6 - End stage renal disease Status: Chronic Assessment and Plan: * did well on PD overnight. * Volume status looks okay. * he is making urine: continue diuretics * Electrolytes okay (2) Sepsis: Qualifiers: Acute respiratory failure type: with hypoxia Sepsis acute organ dysfunction status: with acute organ dysfunction Sepsis type: sepsis due to unspecified organism Severe sepsis acute organ dysfunction type: acute respiratory failure Severe sepsis shock status: without septic shock Qualified Code(s): A41.9 - Sepsis, unspecified organism; R65.20 - Severe sepsis without septic shock; J96.01 - Acute respiratory failure with hypoxia Code(s): A41.9 - Sepsis, unspecified organism Status: Acute Assessment and Plan: * sepsis * presumed source is pneumonia (based on imaging to date) * blood cultures negative so far * PD fluid cell count is fine. * culture still pending * on antibiotics (3) Acute respiratory failure with hypoxia: Code(s): J96.01 - Acute respiratory failure with hypoxia Status: Acute Assessment and Plan: * suspet multifactorial: * COPD exacerbation * pneumonia * lnown history of DAVON * mild component of fluid issues * supplemental oxygen * BiPAP support as needed * continue current supportive care. (4) Pneumonia: Qualifiers: Laterality: bilateral Lung location: lower lobe of lung Pneumonia type: due to unspecified organism Qualified Code(s): J18.9 - Pneumonia, unspecified organism Code(s): J18.9 - Pneumonia, unspecified organism Status: Acute Assessment and Plan: * based on admission imaging and clinical symptoms * supportive care * on Zithromax and ceftriaxone * cultures negative so far (5) Hypertension: Code(s): I10 - Essential (primary) hypertension Status: Chronic Assessment and Plan: * blood pressure is high with systolic in the 150s to 180s. * He is on hydralazine 50 mg at hs. * No allergies to Guillermo inhibitors. Will start lisinopril (6) Anemia: Code(s): D64.9 - Anemia, unspecified Status: Chronic Assessment and Plan: * hb 9.2 * Epogen 3x/week while hospitalized * (7) Diabetes mellitus: Qualifiers: Chronic kidney disease stage: on chronic dialysis Diabetes mellitus complication detail: with chronic kidney disease Diabetes mellitus complication status: with kidney complications Diabetes mellitus shelter insulin use: with termite control servicer use Diabetes mellitus type: type 2 Qualified Code(s): E11.22 - Type 2 diabetes mellitus with diabetic chronic kidney disease; N18.6 - End stage renal disease; Z79.4 - termite control representative (current) use of insulin; Z99.2 - Dependence on renal dialysis Code(s): E11.9 - Type 2 diabetes mellitus without complications Status: Chronic Assessment and Plan: * follow accu-cheks * glycemic control per hospitalists Subjective Date/time seen: 10/04/22 13:55 Interval history: Obinna is very weak. sitting up at the side of the bed. eager for discharge. Exam Narrative: WDWN in NAD skin no rash head ncat lungs clear bilaterally cor reg no rub abd BS+ nontender and soft ext no edema or cyanosis.. Objective Data Vital Signs Vital Signs: Vital Signs - 24 hr
--- NOTE | 2022-10-04 13:55 | PM.PNNEP ---
Progress Note: A&P Assessment and Plan (1) End stage renal disease: Code(s): N18.6 - End stage renal disease Status: Chronic Assessment and Plan: did well on PD overnight. Volume status looks okay. he is making urine: continue diuretics Electrolytes okay (2) Sepsis: Qualifiers: Acute respiratory failure type: with hypoxia Sepsis acute organ dysfunction status: with acute organ dysfunction Sepsis type: sepsis due to unspecified organism Severe sepsis acute organ dysfunction type: acute respiratory failure Severe sepsis shock status: without septic shock Qualified Code(s): A41.9 - Sepsis, unspecified organism; R65.20 - Severe sepsis without septic shock; J96.01 - Acute respiratory failure with hypoxia Code(s): A41.9 - Sepsis, unspecified organism Status: Acute Assessment and Plan: sepsis presumed source is pneumonia (based on imaging to date) blood cultures negative so far PD fluid cell count is fine. culture still pending on antibiotics (3) Acute respiratory failure with hypoxia: Code(s): J96.01 - Acute respiratory failure with hypoxia Status: Acute Assessment and Plan: suspet multifactorial: COPD exacerbation pneumonia lnown history of DAVON mild component of fluid issues supplemental oxygen BiPAP support as needed continue current supportive care. (4) Pneumonia: Qualifiers: Laterality: bilateral Lung location: lower lobe of lung Pneumonia type: due to unspecified organism Qualified Code(s): J18.9 - Pneumonia, unspecified organism Code(s): J18.9 - Pneumonia, unspecified organism Status: Acute Assessment and Plan: based on admission imaging and clinical symptoms supportive care on Zithromax and ceftriaxone cultures negative so far (5) Hypertension: Code(s): I10 - Essential (primary) hypertension Status: Chronic Assessment and Plan: blood pressure is high with systolic in the 150s to 180s. He is on hydralazine 50 mg at hs. No allergies to Guillermo inhibitors. Will start lisinopril (6) Anemia: Code(s): D64.9 - Anemia, unspecified Status: Chronic Assessment and Plan: hb 9.2 Epogen 3x/week while hospitalized (7) Diabetes mellitus: Qualifiers: Chronic kidney disease stage: on chronic dialysis Diabetes mellitus complication detail: with chronic kidney disease Diabetes mellitus complication status: with kidney complications Diabetes mellitus watermaster insulin use: with watermaster use Diabetes mellitus type: type 2 Qualified Code(s): E11.22 - Type 2 diabetes mellitus with diabetic chronic kidney disease; N18.6 - End stage renal disease; Z79.4 - correction (current) use of insulin; Z99.2 - Dependence on renal dialysis Code(s): E11.9 - Type 2 diabetes mellitus without complications Status: Chronic Assessment and Plan: follow accu-cheks glycemic control per hospitalists Subjective Date/time seen: 10/04/22 13:55 Interval history: Obinna is very weak. sitting up at the side of the bed. eager for discharge. Exam Narrative: WDWN in NAD skin no rash head ncat lungs clear bilaterally cor reg no rub abd BS+ nontender and soft ext no edema or cyanosis.. Objective Data Vital Signs Vital Signs: Vital Signs - 24 hr 10/03/22 15:00 10/03/22 15:09 10/03/22 14:00 Temperature Pulse Rate 78 82 94 Respiratory Rate 18 18 Blood Pressure Pulse Oximetry Oxygen Delivery Oxygen Flow Rate Fraction of Inspired Oxygen 10/03/22 16:00 10/03/22 16:00 10/03/22 16:00 Temperature 97.8 F Pulse Rate 95 94 Respiratory Rate 16 Blood Pressure 175/69 H Pulse Oximetry 98 98 Oxygen Delivery Nasal Cannula Oxygen Flow Rate 2 Fraction of Inspired Oxygen 28 10/03/22 18:16 10/03/22 18:00 10/03/22 20:37 Temperature 97.8 F Pulse Rate 94 90
[2022-10-04 17:01] LABS: Glucose Point of Care 140 mg/dl (65-105)
[2022-10-04 20:25] LABS: Glucose Point of Care 302 mg/dl (65-105)
[2022-10-04] MEDS: cloNIDine HCL 0.1 MG TABLET PO (20:27)
[2022-10-04] MEDS: ISOSORBIDE MONONITRATE 30 MG TAB.ER.24H PO (20:27)
[2022-10-04] MEDS: hydrALAZINE HCL 50 MG TABLET PO (20:27)
[2022-10-04] MEDS: LEVALBUTEROL NEB 1.25 MG/3 ML INHALATION (20:43)
--- NOTE | 2022-10-04 21:09 | ECG_ITS ---
Measurements Intervals [place] Rate: 131 P: [place]: 0 QRS: 90 QRSD: 100 T: 266 QT: 311 QTc: 459 Interpretive Statements ATRIAL FIBRILLATION WITH RAPID VENTRICULAR RESPONSE MODERATE VOLTAGE CRITERIA FOR LVH, CONSIDER NORMAL VARIANT [MEETS CRITERIA IN ONE OF: R(aVL), S(V1), R(V5), R(V5/V6)+S(V1)] ST DEVIATION AND MODERATE T-WAVE ABNORMALITY, CONSIDER INFERIOR ISCHEMIA [-0.1+ mV T WAVE IN II/aVF] WARNING: DATA QUALITY MAY AFFECT INTERPRETATION COMPARED TO ECG 10/01/2022 23:13:24 ATRIAL FIBRILLATION NOW PRESENT Electronically Signed On 10-05-2022 10:24:46 CDT by Max Whelan M.D.
[2022-10-04] MEDS: METOPROLOL TARTRATE INJ 5 MG/5 ML VIAL IV PUSH (21:40)
--- NOTE | 2022-10-04 21:44 | ECG_ITS ---
Measurements Intervals [place] Rate: 111 P: [place]: 0 QRS: 83 QRSD: 113 T: 251 QT: 360 QTc: 491 Interpretive Statements ATRIAL FIBRILLATION WITH RAPID VENTRICULAR RESPONSE LEFT VENTRICULAR HYPERTROPHY AND ST-T CHANGE [VOLTAGE CRITERIA PLUS ST/T ABNORMALITY] ABNORMAL ECG Electronically Signed On 10-05-2022 10:25:45 CDT by Max Whelan M.D.
--- NOTE | 2022-10-04 22:30 | PM.EVENT ---
Event Note Event Note Event Note: Around 21:00 nursing staff called me to tell me patient has been having intermittent chest pain. I ordered stat EKG which demonstrated per device interpretation but rhythm. Pretty regular. I gave the patient a dose of IV Lopressor and repeat EKG confirmed atrial flutter with RVR and ST changes in 1 to 3 before V5 and V6. The patient denies known history of atrial fibrillation however patient is a poor historian. Patient receives all of his care at [facility]. His blood bank laboratory professional is Dr. Dinero. When I went to evaluate the patient the patient was nonspecific as to whether not he was having chest pain at the moment. His biggest complaint was feeling lightheaded and dizzy. He is currently undergoing peritoneal dialysis at the time my evaluation. He denies any shortness of breath. The patient's blood pressures had been elevated up into the 160s and 170s for most of the day. He had been even higher the day prior. He reports that he feels lightheaded and off since he received Xanax this morning. He reports that his heart is racing and that they told him is heart was racing because of nebulizer treatment. His nebulizer at have been switched from albuterol to Xopenex earlier in the day. The patient's heart rate was 128 down from prior value of 140s prior to my evaluation. I-STAT troponin was performed which demonstrated increased from the 4th of 0.1 up to 1.08. I suspect the patient is having a type 2 infarct due to demand ischemia from AFib RVR. Patient was started on a Cardizem drip and heparin drip. Will consult Cardiology for possible new onset a flutter RVR and type 2 infarct. Nitroglycerin has been added as needed for chest pain. Will request records from [facility]. 50 minute spent in critical care activities Due to a high probability of clinically significant, life threatening deterioration, the patient required my highest level of preparedness to intervene emergently and I personally spent this critical care time directly and personally managing the patient. This critical care time included obtaining a history; examining the patient; pulse oximetry; ordering and review of studies; arranging urgent treatment with development of a management plan; evaluation of patient's response to treatment; frequent reassessment; and discussions with other providers. It was exclusive of separately billable procedures and treating other patients and teaching time. Please see Assessment and Plan section and the rest of the note for further information on patient assessment and treatment.
[2022-10-04] MEDS: dilTIAZem 100 MG/100 ML 100 MG/100 ML BAG IV CONT (23:14)
[2022-10-04 23:53] LABS: Basophils Percent Auto 0.5 % (0.2-1.2); Eosinophils Absolute Auto 0.1 K/mm3 (0-0.3); Eosinophils Percent Auto 0.8 % (0-4.4); Hematocrit 30.3 % (42.0-52.0); Hemoglobin 9.2 g/dL (14.0-18.0); Immature Granulocyte Absolute 0.02 K/mm3 (0.00-0.031); Immature Granulocyte Percent A 0.3 % (0-0.5); Lymphocytes Percent Auto 15.4 % (18.3-44.2); Mean Corpuscular HGB Conc 30.4 g/dl (32-36); Mean Corpuscular Hemoglobin 29.8 pg (26-34); Mean Corpuscular Volume 98.1 fl (80-100); Mean Platelet Volume 10.6 fl (7.4-10.4); Monocytes Absolute Auto 0.4 K/mm3 (0.1-0.6); Monocytes Percent Auto 5.4 % (2.6-8.5); Neutrophils Absolute Auto 5.1 K/mm3 (1.3-6.7); Neutrophils Percent Auto 77.6 % (45.5-73.1); Platelet Count Result 271 k/mm3 (150-375); Red Blood Count 3.09 M/mm3 (4.6-6.20); Red Cell Distribution Width 17.5 % (11.5-14.5); White Blood Count 6.5 K/mm3 (4.5-10.0)
[2022-10-05] VITALS (29 sets, daily range): BP systolic 117–165; BP diastolic 53–83; PULSE 100–125; RESP 16–20; TEMP 36.5–37.1; O2SAT 96–99
--- NOTE | 2022-10-05 | ECHO_ITS ---
Patient Info Name: Obinna Murphy Age: 72 years : 1950 Gender: Male Ht: 67 in Wt: 137 lbs BSA: 1.71 m2 HR: 90 bpm BP: 130 / 73 mmHg Heart Rhythm: Atrial Fibrillation Technical Quality: Fair Exam Date: 10/05/2022 3:26 PM Exam Location: [facility] Patient Status: Inpatient Admit Date: 10/03/2022 Staff Ordering Physician: Max Whelan MD Pilot Captain: Karma Hale RDCS Attending Provider: Naima Lundy DO Referring Physician: Cleopatra SALDAÑA; Exam Type: CA echo doppler color flow Study Info Indications - AFIB, CORONARY DISEASE Complete two-dimensional, color flow and Doppler transthoracic echocardiogram is performed. Summary 1. Complete two-dimensional, color flow and Doppler transthoracic echocardiogram is performed. 2. Severe concentric left ventricular hypertrophy with normal systolic function. 3. Biatrial dilation. 4. Trivial MR. 5. Mild aortic valve stenosis valve area 1.5 cm2. 6. Atrial fibrillation. Left Ventricle Left ventricular chamber dimension is normal. Left ventricular systolic function is normal, estimated at 65-70%. There is severe concentric increased left ventricular wall thickness. The left ventricular diastolic function is indeterminate. Right Ventricle Right ventricular chamber dimension is normal. Left Atria Left atrial chamber dimension is moderately enlarged. Right Atria Right atrial chamber dimension is mildly enlarged. Aortic Valve The aortic valve is trileaflet. There is moderate aortic valve sclerosis. There is mild aortic valve stenosis with a peak velocity of 189 cm/s, mean gradient of 8 mmHg, and aortic valve area of 1.3 cm2. Pulmonic Valve The pulmonic valve is not well visualized. Mitral Valve The mitral valve has normal leaflets. There is trace mitral valve regurgitation. Tricuspid Valve The tricuspid valve leaflets are normal. Pericardium/Pleural The pericardium appears normal. Aorta The aortic root size at the sinus of Valsalva is normal. Left Ventricular Outflow Tract Name Value Normal LVOT 2D LVOT Diameter 1.8 cm LVOT Doppler LVOT Peak Gradient 3 mmHg LVOT Mean Gradient 1 mmHg LVOT VTI 16 cm LVOT VTI/AV VTI Ratio 0.5 LVOT Stroke Volume 42 ml LVOT CO 3.3 l/min LVOT CI 1.9 l/min/m2 Pulmonic Valve Name Value Normal RVOT Doppler RVOT Peak Gradient 2 mmHg PV Doppler PV Peak Gradient 2 mmHg Mitral Valve Name Value Normal MV Doppler
[2022-10-05] MEDS: cefTRIAXone 2 GM/NS 100 ML 2 GM/100 ML BAG IVPB ×2 (00:04→20:52)
[2022-10-05 00:11] LABS: Prothrombin Time 13.9 Seconds (11.1-14.7)
[2022-10-05] MEDS: HEPARIN SOD/D5W 100 UNITS/ML 25,000 UNITS/250 ML BAG 7 UNITS IV CONT (00:18)
[2022-10-05] MEDS: IPRATROPIUM BR 0.02% INH SOLN 0.5 MG/2.5 ML VIAL INHALATION ×4 (01:15→20:37)
[2022-10-05] MEDS: LEVALBUTEROL NEB 1.25 MG/3 ML INHALATION ×4 (01:16→20:37)
[2022-10-05] MEDS: AZITHROMYCIN 500 MG/NS 250 ML 500 MG/250 ML BAG 250 MG IVPB (01:38)
[2022-10-05 04:44] LABS: Basophils Percent Auto 0.4 % (0.2-1.2); Eosinophils Absolute Auto 0.1 K/mm3 (0-0.3); Eosinophils Percent Auto 1.2 % (0-4.4); Hematocrit 29.3 % (42.0-52.0); Hemoglobin 8.9 g/dL (14.0-18.0); Immature Granulocyte Absolute 0.01 K/mm3 (0.00-0.031); Immature Granulocyte Percent A 0.2 % (0-0.5); Lymphocytes Absolute Auto 0.94 K/mm3 (0.9-3.2); Lymphocytes Percent Auto 16.8 % (18.3-44.2); Mean Corpuscular HGB Conc 30.4 g/dl (32-36); Mean Corpuscular Hemoglobin 29.5 pg (26-34); Mean Platelet Volume 10.5 fl (7.4-10.4); Monocytes Absolute Auto 0.3 K/mm3 (0.1-0.6); Monocytes Percent Auto 5.3 % (2.6-8.5); Neutrophils Absolute Auto 4.3 K/mm3 (1.3-6.7); Neutrophils Percent Auto 76.1 % (45.5-73.1); Platelet Count Result 269 k/mm3 (150-375); Red Blood Count 3.02 M/mm3 (4.6-6.20); Red Cell Distribution Width 17.3 % (11.5-14.5); White Blood Count 5.6 K/mm3 (4.5-10.0)
[2022-10-05 04:57] LABS: Albumin Level 3.3 g/dL (3.5-5.1); Anion Gap 15 mmol/L (8-16); Blood Urea Nitrogen 106 mg/dL (9-20); Carbon Dioxide 21 mmol/L (22-30); Chloride 97 mmol/L (98-107); Estimated CRCL calculation 6 ml/min; Estimated Glomerular Filt Rate 6; Glucose 340 mg/dL (65-110); Magnesium 2.3 mg/dL (1.6-2.3); Phosphorus 9.1 mg/dL (2.5-4.5); Potassium 3.7 mmol/L (3.4-5.0); Sodium 133 mmol/L (137-145)
[2022-10-05 05:13] LABS: Troponin I 0.666 ng/mL (0.000-0.034)
[2022-10-05 07:23] LABS: Partial Thromboplastin Time 45.9 SECONDS (22.3-36.8)
[2022-10-05 07:38] LABS: Glucose Point of Care 225 mg/dl (65-105)
--- NOTE | 2022-10-05 08:58 | PM.CNCAR ---
Assessment and Plan Assessment and plan (1) New onset atrial fibrillation: Code(s): I48.91 - Unspecified atrial fibrillation Status: Acute Assessment and Plan: It appears in reviewing his vitals that he went into atrial fibrillation/flutter on the 6th. Heart rate did increase at that time. EKG at admission showed sinus rhythm. Heart rate is still elevated albeit not dramatically so. He was taken off of clopidogrel recently because of bleeding issues. He remains on aspirin only. For now he has a high chads Vasc score which warrants full anticoagulation. Will continue heparin drip for now. He is on a peculiar regimen of cardiac meds in my opinion as I do not see that he is on a beta-luz. Will request records from [facility]. Continue diltiazem but given the fact that it appears he has gone into atrial fibrillation less than 48 hours ago, will use a dose of IV amiodarone 150 mg IV x1. 2D echocardiogram with Doppler be ordered and reviewed. (2) Hypertension: Code(s): I10 - Essential (primary) hypertension Status: Chronic Assessment and Plan: Reasonably controlled (3) End stage renal disease: Code(s): N18.6 - End stage renal disease Status: Chronic Assessment and Plan: On peritoneal dialysis followed by Nephrology (4) COPD exacerbation: Code(s): J44.1 - Chronic obstructive pulmonary disease with (acute) exacerbation Status: Acute (5) DAVON on CPAP: Code(s): G47.33 - Obstructive sleep apnea (adult) (pediatric) Status: Acute Assessment and Plan: Compliant (6) Coronary artery disease: Code(s): I25.10 - Atherosclerotic heart disease of belkofski coronary artery without angina pectoris Status: Acute Assessment and Plan: Does have exertional angina but none at rest. Troponins are elevated and likely is secondary to type [address]-elevation myocardial infarction related to demand ischemia from his AF with ventricular response. He has no chest pain at present. Troponins are trending down. Medically managed as an inpatient but will need outpatient follow-up soon upon discharge with Dr. Dinero. History of Present Illness History of Present Illness Consult date/time: 10/05/22 08:58 Requesting physician: Naima Pierre DO Consult reason: atrial fibrillation Reason For Visit: Dyspnea/Febrile Illness/Peritoneal Dialysis Narrative: Date of service 10/05/2022 Reason consultation: Atrial flutter/fibrillation Requesting provider: Dr. Pierre History patient is a 72-year-old male has a complex medical history typically has most of his care performed at [facility]. He sees Dr. Dinero from a cardiology perspective there. He has history of CAD and Claire year had least 1 stent placed although there was discussion of bypass but stents were chosen instead assuming related to the complexity of his health status. He also has COPD, CHF, diabetes, peritoneal dialysis, sleep apnea came to hospital because of shortness of breath, cough. He also had elevated temperature of 102.4?. Started on antibiotics. Being treated for pneumonia. Reportedly a sturdy evening he was complaining of some chest discomfort. Crosscover note is reviewed and reportedly the patient had some ill described chest discomfort yesterday. Vitals yesterday showed elevation of his heart rate an EKG was eventually ordered. EKG showed atrial fibrillation with rapid ventricular response. Metoprolol was given. Troponins were drawn which did elevate to a level 1.0. He was started on diltiazem drip as well as a heparin drip. He currently feels okay although he does describe some shortness of breath which is relatively chronic but worsening over the past couple of days prior to admission. He has lower extremity edema also which has improved since admission. He does have exertional chest pain as an outpatient which is not new or different. He denies any palpitations, sync
[2022-10-05] MEDS: BUDESONIDE RESPULE NEB 0.5 MG/2 ML AMP INHALATION ×2 (09:02→20:37)
[2022-10-05] MEDS: dilTIAZem 100 MG/100 ML 100 MG/100 ML BAG 15 MG IV CONT ×3 (09:06→22:00)
[2022-10-05] MEDS: TAMSULOSIN HCL 0.4 MG CAPSULE PO (09:08)
[2022-10-05] MEDS: SEVELAMER CARBONATE 800 MG TABLET PO ×3 (09:08→16:04)
[2022-10-05] MEDS: cloNIDine HCL 0.1 MG TABLET PO ×2 (09:09→20:47)
[2022-10-05] MEDS: FUROSEMIDE INJ 40 MG/4 ML VIAL IV PUSH ×2 (09:09→16:05)
[2022-10-05] MEDS: amLODIPine BESYLATE 2.5 MG TABLET PO (09:09)
[2022-10-05] MEDS: FERROUS SULFATE 325 MG TABLET DR PO ×2 (09:09→16:04)
[2022-10-05] MEDS: HEPARIN SODIUM 5,000 UNITS/ML VIAL 4000 UNITS IV PUSH (09:29)
[2022-10-05] MEDS: INSULIN ASPART (*BKC) 100 UNITS/ML SUB-Q (09:30)
[2022-10-05] MEDS: AMIODARONE 150 MG/D5W 100 ML 150 MG/100 ML BAG 600 MG IV CONT (10:21)
--- NOTE | 2022-10-05 11:00 | P.PNNP_ITS ---
Progress Note: A&P Assessment and Plan (1) End stage renal disease: Code(s): N18.6 - End stage renal disease Status: Chronic Assessment and Plan: * continue CCPD * follow electrolytes, volume status, and clearance * continue diuretics (has residual renal function) (2) Sepsis: Qualifiers: Acute respiratory failure type: with hypoxia Sepsis acute organ dysfunction status: with acute organ dysfunction Sepsis type: sepsis due to unspecified organism Severe sepsis acute organ dysfunction type: acute respiratory failure Severe sepsis shock status: without septic shock Qualified Code(s): A41.9 - Sepsis, unspecified organism; R65.20 - Severe sepsis without septic shock; J96.01 - Acute respiratory failure with hypoxia Code(s): A41.9 - Sepsis, unspecified organism Status: Acute Assessment and Plan: * as evidence by fever tachypnea, tachycardia and respiratory failure with associated hypoxia on admission * presumed source is pneumonia (based on imaging to date) * blood cultures negative so far * on antibiotics (3) Acute respiratory failure with hypoxia: Code(s): J96.01 - Acute respiratory failure with hypoxia Status: Acute Assessment and Plan: * suspet multifactorial: * COPD exacerbation * pneumonia * lnown history of DAVON * mild component of fluid issues * supplemental oxygen as needed * BiPAP support PRN * continue current therapy (4) Pneumonia: Qualifiers: Laterality: bilateral Lung location: lower lobe of lung Pneumonia type: due to unspecified organism Qualified Code(s): J18.9 - Pneumonia, unspecified organism Code(s): J18.9 - Pneumonia, unspecified organism Status: Acute Assessment and Plan: * based on admission imaging and clinical symptoms * respiratory support * on Zithromax and ceftriaxone * cultures negative so far (5) Hypertension: Code(s): I10 - Essential (primary) hypertension Status: Chronic Assessment and Plan: * running on the high side * lisinopril just added * follow trend of hemodynamics (6) Anemia: Code(s): D64.9 - Anemia, unspecified Status: Chronic Assessment and Plan: * due to ESRD and possibly acute illness * Epogen 3x/week while hospitalized * follow trend of H/H (7) Diabetes mellitus: Qualifiers: Chronic kidney disease stage: on chronic dialysis Diabetes mellitus complication detail: with chronic kidney disease Diabetes mellitus complication status: with kidney complications Diabetes mellitus terminologist insulin use: with terminologist use Diabetes mellitus type: type 2 Qualified Code(s): E11.22 - Type 2 diabetes mellitus with diabetic chronic kidney disease; N18.6 - End stage renal disease; Z79.4 - terminal operations manager (current) use of insulin; Z99.2 - Dependence on renal dialysis Code(s): E11.9 - Type 2 diabetes mellitus without complications Status: Chronic Assessment and Plan: * follow accu-cheks * glycemic control per hospitalists Will continue to follow. Subjective Date/time seen: 10/05/22 11:00 Interval history: Follow-up for end stage renal disease on peritoneal dialysis. Tolerated CCPD overnight without any issues or problems; somewhat upset by his elevated heart rate/atrial fibrillation which he attributes to nebulizer tr eatments; currently on cardizem and heparin gtt; seen by Cardiology his AM. Exam Narrative: General: elderly male in NAD Heart: IRRR, nor
--- NOTE | 2022-10-05 11:00 | PM.PNNEP ---
Progress Note: A&P Assessment and Plan (1) End stage renal disease: Code(s): N18.6 - End stage renal disease Status: Chronic Assessment and Plan: continue CCPD follow electrolytes, volume status, and clearance continue diuretics (has residual renal function) (2) Sepsis: Qualifiers: Acute respiratory failure type: with hypoxia Sepsis acute organ dysfunction status: with acute organ dysfunction Sepsis type: sepsis due to unspecified organism Severe sepsis acute organ dysfunction type: acute respiratory failure Severe sepsis shock status: without septic shock Qualified Code(s): A41.9 - Sepsis, unspecified organism; R65.20 - Severe sepsis without septic shock; J96.01 - Acute respiratory failure with hypoxia Code(s): A41.9 - Sepsis, unspecified organism Status: Acute Assessment and Plan: as evidence by fever tachypnea, tachycardia and respiratory failure with associated hypoxia on admission presumed source is pneumonia (based on imaging to date) blood cultures negative so far on antibiotics (3) Acute respiratory failure with hypoxia: Code(s): J96.01 - Acute respiratory failure with hypoxia Status: Acute Assessment and Plan: suspet multifactorial: COPD exacerbation pneumonia lnown history of DAVON mild component of fluid issues supplemental oxygen as needed BiPAP support PRN continue current therapy (4) Pneumonia: Qualifiers: Laterality: bilateral Lung location: lower lobe of lung Pneumonia type: due to unspecified organism Qualified Code(s): J18.9 - Pneumonia, unspecified organism Code(s): J18.9 - Pneumonia, unspecified organism Status: Acute Assessment and Plan: based on admission imaging and clinical symptoms respiratory support on Zithromax and ceftriaxone cultures negative so far (5) Hypertension: Code(s): I10 - Essential (primary) hypertension Status: Chronic Assessment and Plan: running on the high side lisinopril just added follow trend of hemodynamics (6) Anemia: Code(s): D64.9 - Anemia, unspecified Status: Chronic Assessment and Plan: due to ESRD and possibly acute illness Epogen 3x/week while hospitalized follow trend of H/H (7) Diabetes mellitus: Qualifiers: Chronic kidney disease stage: on chronic dialysis Diabetes mellitus complication detail: with chronic kidney disease Diabetes mellitus complication status: with kidney complications Diabetes mellitus intermediate manager insulin use: with intermediate manager use Diabetes mellitus type: type 2 Qualified Code(s): E11.22 - Type 2 diabetes mellitus with diabetic chronic kidney disease; N18.6 - End stage renal disease; Z79.4 - assistant terminal manager (current) use of 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 Subjective Date/time seen: 10/05/22 11:00 Interval history: Follow-up for end stage renal disease on peritoneal dialysis. Tolerated CCPD overnight without any issues or problems; somewhat upset by his elevated heart rate/atrial fibrillation which he attributes to nebulizer treatments; currently on cardizem and heparin gtt; seen by Cardiology his AM. Exam Narrative: General: elderly male in NAD Heart: IRRR, normal S1 and S2; no rub Lungs: coarse breath sounds Abdomen: soft, nontender, nondistended, positive bowel sounds Extremities: no cyanosis or clubbing; no edema Skin: warm and dry Objective Data Vital Signs Vital Signs: Vital Signs Temp Pulse Resp BP Pulse Ox O2 Del Method O2 Flow Rate 10/05/22 10:21 110 H 10/05/22 09:06 114 H 10/05/22 08:17 114 H 10/05/22 09:04 96 Nasal Cannula 2 10/05/22 08:55 108 H 18 08
--- NOTE | 2022-10-05 11:45 | PC.NURSE ---
Patient refuses to stay in bed despite being on heparin , cardizem and amio bolus gtts. Educated patient ,and at bedside, the risk of falling with him being dizzy. He could suffer a head bleed and could occur patient stated , good .
[2022-10-05 12:01] LABS: Glucose Point of Care 172 mg/dl (65-105)
[2022-10-05] MEDS: NEOMYCIN/POLYMYXIN/BACITRACIN OINTMENT 15 GM TUBE 1 APPLIC TOPICAL (12:12)
[2022-10-05 15:51] LABS: Partial Thromboplastin Time 69.5 SECONDS (22.3-36.8)
--- NOTE | 2022-10-05 16:22 | WPDPN ---
Progress Note: A&P Assessment and Plan (1) Sepsis: Qualifiers: Sepsis type: sepsis due to unspecified organism Sepsis acute organ dysfunction status: with acute organ dysfunction Severe sepsis acute organ dysfunction type: acute respiratory failure Acute respiratory failure type: with hypoxia Severe sepsis shock status: without septic shock Qualified Code(s): A41.9 - Sepsis, unspecified organism; R65.20 - Severe sepsis without septic shock; J96.01 - Acute respiratory failure with hypoxia Code(s): A41.9 - Sepsis, unspecified organism Status: Acute (2) Acute respiratory failure with hypoxia: Code(s): J96.01 - Acute respiratory failure with hypoxia Status: Acute (3) Pneumonia: Qualifiers: Pneumonia type: due to unspecified organism Laterality: bilateral Lung location: lower lobe of lung Qualified Code(s): J18.9 - Pneumonia, unspecified organism Code(s): J18.9 - Pneumonia, unspecified organism Status: Acute (4) Peritoneal dialysis catheter in place: Code(s): Z99.2 - Dependence on renal dialysis Status: Acute (5) COPD exacerbation: Code(s): J44.1 - Chronic obstructive pulmonary disease with (acute) exacerbation Status: Acute (6) DAVON on CPAP: Code(s): G47.33 - Obstructive sleep apnea (adult) (pediatric) Status: Acute (7) Diabetes mellitus: Qualifiers: Diabetes mellitus type: type 2 Diabetes mellitus mcc insulin use: with mcc use Diabetes mellitus complication status: with kidney complications Diabetes mellitus complication detail: with chronic kidney disease Chronic kidney disease stage: on chronic dialysis Qualified Code(s): E11.22 - Type 2 diabetes mellitus with diabetic chronic kidney disease; N18.6 - End stage renal disease; Z79.4 - skilled nursing (current) use of insulin; Z99.2 - Dependence on renal dialysis Code(s): E11.9 - Type 2 diabetes mellitus without complications Status: Chronic (8) ESRD (end stage renal disease) on dialysis: Code(s): N18.6 - End stage renal disease; Z99.2 - Dependence on renal dialysis Status: Acute Plan Patient presented with respiratory distress and was found to be in acute hypoxic respiratory failure. He was febrile with T-max of 102.4?. He fit sepsis criteria with fever tachypnea, tachycardia and respiratory failure. Chest x-ray was personally reviewed and demonstrated opacities in the lower lobes likely consistent with pneumonia given patient's reported cough and fever. Patient was started on empiric antibiotic therapy with Rocephin and azithromycin. Blood cultures were obtained in the ER. Will continue antibiotic therapy. Will hold off on giving the patient any IV fluids given his history of heart failure. The patient may have some component of fluid overload given that was unable to complete his dialysis session. Will switch is p.o. Lasix to IV. Will monitor fluid status closely. Patient does have a history of diabetes but is relatively euglycemic with glucose levels within target value for hospitalized patients with glucoses of 156. Will place on low-dose sliding scale insulin if needed for hyperglycemia. Hypoglycemia protocol has also been ordered. Patient was placed on a diabetic consistent carbohydrate diet with 1.5 L fluid restriction. Nephrology has been consulted for management of the patient's peritoneal dialysis. Electrolyte panel is currently relatively stable. Will continue to monitor and repeat BMP in a.m.. The patient does have an elevated troponin. Troponin elevation likely due to patient's end-stage renal disease, some component of heart failure and stress from acute hypoxic respiratory failure as well as sepsis in the patient with known history of multivessel coronary disease. Patient is being monitored in IMU due to need for BiPAP and elevated troponin. 10/05/2022 interval history: 72-year-old male with history of end-stage delaney
[2022-10-05 16:35] LABS: Glucose Point of Care 147 mg/dl (65-105)
[2022-10-05] MEDS: HEPARIN SODIUM 5,000 UNITS/ML VIAL 2500 UNITS IV PUSH (17:34)
[2022-10-05 20:23] LABS: Glucose Point of Care 366 mg/dl (65-105)
[2022-10-05] MEDS: AZITHROMYCIN 250 MG TABLET 500 MG PO (20:47)
[2022-10-05] MEDS: hydrALAZINE HCL 50 MG TABLET PO (20:47)
[2022-10-05] MEDS: ISOSORBIDE MONONITRATE 30 MG TAB.ER.24H PO (20:47)
[2022-10-06] VITALS (29 sets, daily range): BP systolic 142–166; BP diastolic 61–93; PULSE 70–129; RESP 18–22; TEMP 35.8–37.2; O2SAT 94–99
[2022-10-06] MEDS: HEPARIN SOD/D5W 100 UNITS/ML 25,000 UNITS/250 ML BAG 10 UNITS IV CONT (00:24)
[2022-10-06] MEDS: dilTIAZem 100 MG/100 ML 100 MG/100 ML BAG 15 MG IV CONT ×2 (04:00→10:42)
[2022-10-06 04:43] LABS: Hematocrit 27.9 % (42.0-52.0); Hemoglobin 8.6 g/dL (14.0-18.0); Mean Corpuscular HGB Conc 30.8 g/dl (32-36); Mean Corpuscular Hemoglobin 29.8 pg (26-34); Mean Corpuscular Volume 96.5 fl (80-100); Mean Platelet Volume 10.6 fl (7.4-10.4); Platelet Count Result 253 k/mm3 (150-375); Red Blood Count 2.89 M/mm3 (4.6-6.20); White Blood Count 4.5 K/mm3 (4.5-10.0)
[2022-10-06 04:57] LABS: Albumin Level 3.3 g/dL (3.5-5.1); Anion Gap 11 mmol/L (8-16); Blood Urea Nitrogen 110 mg/dL (9-20); Calcium 7.9 mg/dL (8.4-10.2); Carbon Dioxide 24 mmol/L (22-30); Chloride 96 mmol/L (98-107); Estimated CRCL calculation 6 ml/min; Estimated Glomerular Filt Rate 6; Glucose 357 mg/dL (65-110); Magnesium 2.3 mg/dL (1.6-2.3); Phosphorus 7.4 mg/dL (2.5-4.5); Sodium 131 mmol/L (137-145)
[2022-10-06] MEDS: INSULIN ASPART (*BKC) 100 UNITS/ML SUB-Q ×2 (07:58→17:42)
[2022-10-06 08:00] LABS: Glucose Point of Care 323 mg/dl (65-105)
[2022-10-06 08:04] LABS: Partial Thromboplastin Time 52.6 SECONDS (22.3-36.8)
[2022-10-06] MEDS: TAMSULOSIN HCL 0.4 MG CAPSULE PO (08:11)
[2022-10-06] MEDS: cloNIDine HCL 0.1 MG TABLET PO ×2 (08:11→20:52)
[2022-10-06] MEDS: SEVELAMER CARBONATE 800 MG TABLET PO ×3 (08:11→17:42)
[2022-10-06] MEDS: FERROUS SULFATE 325 MG TABLET DR PO ×2 (08:11→17:42)
[2022-10-06] MEDS: amLODIPine BESYLATE 2.5 MG TABLET PO (08:11)
[2022-10-06] MEDS: FUROSEMIDE INJ 40 MG/4 ML VIAL IV PUSH ×2 (08:12→17:42)
[2022-10-06] MEDS: NEOMYCIN/POLYMYXIN/BACITRACIN OINTMENT 15 GM TUBE 1 APPLIC TOPICAL (08:16)
[2022-10-06] MEDS: IPRATROPIUM BR 0.02% INH SOLN 0.5 MG/2.5 ML VIAL INHALATION ×4 (08:38→20:14)
[2022-10-06] MEDS: BUDESONIDE RESPULE NEB 0.5 MG/2 ML AMP INHALATION ×2 (08:38→20:14)
[2022-10-06] MEDS: LEVALBUTEROL NEB 1.25 MG/3 ML INHALATION ×4 (08:38→20:15)
--- NOTE | 2022-10-06 09:45 | PM.PNNEP ---
Progress Note: A&P Assessment and Plan (1) End stage renal disease: Code(s): N18.6 - End stage renal disease Status: Chronic Assessment and Plan: continue CCPD follow electrolytes, volume status, and clearance continue diuretics (has residual renal function) (2) Sepsis: Qualifiers: Acute respiratory failure type: with hypoxia Sepsis acute organ dysfunction status: with acute organ dysfunction Sepsis type: sepsis due to unspecified organism Severe sepsis acute organ dysfunction type: acute respiratory failure Severe sepsis shock status: without septic shock Qualified Code(s): A41.9 - Sepsis, unspecified organism; R65.20 - Severe sepsis without septic shock; J96.01 - Acute respiratory failure with hypoxia Code(s): A41.9 - Sepsis, unspecified organism Status: Acute Assessment and Plan: as evidence by fever tachypnea, tachycardia and respiratory failure with associated hypoxia on admission presumed source is pneumonia (based on imaging to date) blood cultures negative so far on antibiotics (3) Acute respiratory failure with hypoxia: Code(s): J96.01 - Acute respiratory failure with hypoxia Status: Acute Assessment and Plan: suspet multifactorial: COPD exacerbation pneumonia known history of DAVON mild component of fluid issues supplemental oxygen as needed BiPAP support PRN continue current therapy (4) Pneumonia: Qualifiers: Laterality: bilateral Lung location: lower lobe of lung Pneumonia type: due to unspecified organism Qualified Code(s): J18.9 - Pneumonia, unspecified organism Code(s): J18.9 - Pneumonia, unspecified organism Status: Acute Assessment and Plan: based on admission imaging and clinical symptoms respiratory support on Zithromax and ceftriaxone cultures negative so far (5) New onset atrial fibrillation: Code(s): I48.91 - Unspecified atrial fibrillation Status: Acute Assessment and Plan: rate control with diltiazem on anticoagulation (heparin gtt) Cardiology following (6) Hypertension: Code(s): I10 - Essential (primary) hypertension Status: Chronic Assessment and Plan: running on the high side lisinopril just added follow trend of hemodynamics (7) Anemia: Code(s): D64.9 - Anemia, unspecified Status: Chronic Assessment and Plan: due to ESRD and possibly acute illness Epogen 3x/week while hospitalized follow trend of H/H (8) Diabetes mellitus: Qualifiers: Chronic kidney disease stage: on chronic dialysis Diabetes mellitus complication detail: with chronic kidney disease Diabetes mellitus complication status: with kidney complications Diabetes mellitus parts counterman insulin use: with [facility] use Diabetes mellitus type: type 2 Qualified Code(s): E11.22 - Type 2 diabetes mellitus with diabetic chronic kidney disease; N18.6 - End stage renal disease; Z79.4 - buttermaker continuous churn (current) use of 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 Subjective Date/time seen: 10/06/22 09:45 Interval history: Follow-up for end stage renal disease on peritoneal dialysis. Continues to tolerated CCPD treatments overnight without any issues or problems; still reports shortness of breath but seems better in comparison to admission; remains diltiazem and heparin gtt for rate control + anticoagulation for his new onset atrial fibrillation; present on my visit and we discussed the situation. Exam Narrative: General: elderly male in NAD Heart: IRRR, tachycardic normal S1 and S2; no rub Lungs: coarse breath sounds Abdomen: soft, nontender, nondistended, positive bowel sounds Extremities: no c
--- NOTE | 2022-10-06 09:45 | P.PNNP_ITS ---
Progress Note: A&P Assessment and Plan (1) End stage renal disease: Code(s): N18.6 - End stage renal disease Status: Chronic Assessment and Plan: * continue CCPD * follow electrolytes, volume status, and clearance * continue diuretics (has residual renal function) (2) Sepsis: Qualifiers: Acute respiratory failure type: with hypoxia Sepsis acute organ dysfunction status: with acute organ dysfunction Sepsis type: sepsis due to unspecified organism Severe sepsis acute organ dysfunction type: acute respiratory failure Severe sepsis shock status: without septic shock Qualified Code(s): A41.9 - Sepsis, unspecified organism; R65.20 - Severe sepsis without septic shock; J96.01 - Acute respiratory failure with hypoxia Code(s): A41.9 - Sepsis, unspecified organism Status: Acute Assessment and Plan: * as evidence by fever tachypnea, tachycardia and respiratory failure with associated hypoxia on admission * presumed source is pneumonia (based on imaging to date) * blood cultures negative so far * on antibiotics (3) Acute respiratory failure with hypoxia: Code(s): J96.01 - Acute respiratory failure with hypoxia Status: Acute Assessment and Plan: * suspet multifactorial: * COPD exacerbation * pneumonia * known history of DAVON * mild component of fluid issues * supplemental oxygen as needed * BiPAP support PRN * continue current therapy (4) Pneumonia: Qualifiers: Laterality: bilateral Lung location: lower lobe of lung Pneumonia type: due to unspecified organism Qualified Code(s): J18.9 - Pneumonia, unspecified organism Code(s): J18.9 - Pneumonia, unspecified organism Status: Acute Assessment and Plan: * based on admission imaging and clinical symptoms * respiratory support * on Zithromax and ceftriaxone * cultures negative so far (5) New onset atrial fibrillation: Code(s): I48.91 - Unspecified atrial fibrillation Status: Acute Assessment and Plan: * rate control with diltiazem * on anticoagulation (heparin gtt) * Cardiology following (6) Hypertension: Code(s): I10 - Essential (primary) hypertension Status: Chronic Assessment and Plan: * running on the high side * lisinopril just added * follow trend of hemodynamics (7) Anemia: Code(s): D64.9 - Anemia, unspecified Status: Chronic Assessment and Plan: * due to ESRD and possibly acute illness * Epogen 3x/week while hospitalized * follow trend of H/H (8) Diabetes mellitus: Qualifiers: Chronic kidney disease stage: on chronic dialysis Diabetes mellitus complication detail: with chronic kidney disease Diabetes mellitus complication status: with kidney complications Diabetes mellitus longterm insulin use: with multiple drum sander helper use Diabetes mellitus type: type 2 Qualified Code(s): E11.22 - Type 2 diabetes mellitus with diabetic chronic kidney disease; N18.6 - End stage renal disease; 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 Subjective Date/time seen: 10/06/22 09:45 Interval history: Follow-up for end stage renal disease on peritoneal dialysis. Continues to tolerated CCPD treatments overnight without any issues or problems;
[2022-10-06] MEDS: HEPARIN SODIUM 5,000 UNITS/ML VIAL 4000 UNITS IV PUSH (10:43)
--- NOTE | 2022-10-06 12:27 | PM.PNCARD ---
Progress Note: A&P Assessment and Plan (1) New onset atrial fibrillation: Code(s): I48.91 - Unspecified atrial fibrillation Status: Acute Assessment and Plan: New onset of atrial fibrillation 10/04/22. Rate control strategy with IV diltiazem. His rate is reasonably controlled at present so will shift him to p.o. diltiazem today. Can consider addition of beta luz if HR remains high. In regards to anticoagulation, he has a high [id number] score which warrants antigoagulation. Remains on heprin gtt at this point. Can be shifted to a NOAC for discharge. He was taken off of clopidogrel recently because of bleeding issues. He remains on aspirin only which should be continued. (2) Hypertension: Code(s): I10 - Essential (primary) hypertension Status: Chronic Assessment and Plan: Reasonably controlled (3) End stage renal disease: Code(s): N18.6 - End stage renal disease Status: Chronic Assessment and Plan: On peritoneal dialysis followed by Nephrology (4) COPD exacerbation: Code(s): J44.1 - Chronic obstructive pulmonary disease with (acute) exacerbation Status: Acute (5) DAVON on CPAP: Code(s): G47.33 - Obstructive sleep apnea (adult) (pediatric) Status: Acute Assessment and Plan: Compliant (6) Coronary artery disease: Code(s): I25.10 - Atherosclerotic heart disease of [place] coronary artery without angina pectoris Status: Acute Assessment and Plan: Does have exertional angina but none at rest. Troponins are elevated and likely is secondary to type [address]-elevation myocardial infarction related to demand ischemia from his AF with ventricular response. He has no chest pain at present. Troponins are trending down. Medically managed as an inpatient but will need outpatient follow-up soon upon discharge with Dr. Dinero. Subjective Date/time seen: 10/06/22 12:27 Interval history: Cardiology follow up for atrial fibrillation He feels better today. Still has some shortness of breath. Denies any palpitations. Review of Systems Review of Systems: All systems reviewed & are unremarkable except as noted in HPI and below Constitutional: Constitutional: Denies body ache(s), Denies excessive sweating and Denies headache(s) Eyes: Eyes: Denies blurry vision ENT: Reports Normal hearing present and Denies headache(s) Cardiovascular: Cardiovascular: Denies chest pain and Reports dyspnea Respiratory: Respiratory: Reports dyspnea Gastrointestinal: Gastrointestinal: Denies abdominal pain Genitourinary: Genitourinary: Denies hematuria Musculoskeletal: Musculoskeletal: Denies back pain Integumentary/Breasts: Skin/Breast: Reports wounds Neurologic: Reports Normal hearing present and Denies headache(s) Psychiatric: Psychiatric: Denies anxiety Endocrine: Endocrine: Denies excessive sweating Hematologic/Lymphatic: Hematologic/Lymphatic: Denies easy bleeding Allergic/Immunologic: Allergic/Immunologic: Denies GI upset with certain foods Exam Narrative: Awake alert oriented appears stated age Const: General: comfortable and no acute distress HENMT: Face/Nose/Sinus: Normal nares present Eyes: Sclera: sclerae normal Other: Enucleated left eye Neck: Neck: supple Chest: Other: No chest wall pain to palpation Resp: Effort & Inspection: normal respiratory effort Auscultation: rales and diminished lung sounds Cardio: Rate: tachycardic Rhythm: abnormal rhythm irregularly irregular Heart sounds: Murmur heart sound present GI: Inspection: non-distended Auscultation: normal bowel sounds Skin: General skin exam: normal color and wounds noted Wounds: wounds noted Neuro: Cranial nerves: Yes Normal hearing present Speech: normal speech Motor exam (neuro): 5/5 motor strength present throughout Extrem: General: no edema Psych: Mental Status: mental status grossly normal Affect: norm
[2022-10-06 12:34] LABS: Glucose Point of Care 54 mg/dl (65-105)
[2022-10-06 13:46] LABS: Glucose Point of Care 169 mg/dl (65-105)
[2022-10-06] MEDS: EPOETIN ALFA 10,000 UNITS/ML VIAL 10000 UNITS SUB-Q (15:21)
--- NOTE | 2022-10-06 15:24 | WPDPN ---
Progress Note: A&P Assessment and Plan (1) Sepsis: Qualifiers: Sepsis type: sepsis due to unspecified organism Sepsis acute organ dysfunction status: with acute organ dysfunction Severe sepsis acute organ dysfunction type: acute respiratory failure Acute respiratory failure type: with hypoxia Severe sepsis shock status: without septic shock Qualified Code(s): A41.9 - Sepsis, unspecified organism; R65.20 - Severe sepsis without septic shock; J96.01 - Acute respiratory failure with hypoxia Code(s): A41.9 - Sepsis, unspecified organism Status: Acute (2) Acute respiratory failure with hypoxia: Code(s): J96.01 - Acute respiratory failure with hypoxia Status: Acute (3) Pneumonia: Qualifiers: Pneumonia type: due to unspecified organism Laterality: bilateral Lung location: lower lobe of lung Qualified Code(s): J18.9 - Pneumonia, unspecified organism Code(s): J18.9 - Pneumonia, unspecified organism Status: Acute (4) Peritoneal dialysis catheter in place: Code(s): Z99.2 - Dependence on renal dialysis Status: Acute (5) COPD exacerbation: Code(s): J44.1 - Chronic obstructive pulmonary disease with (acute) exacerbation Status: Acute (6) DAVON on CPAP: Code(s): G47.33 - Obstructive sleep apnea (adult) (pediatric) Status: Acute (7) Diabetes mellitus: Qualifiers: Diabetes mellitus type: type 2 Diabetes mellitus skilled nursing insulin use: with skilled nursing use Diabetes mellitus complication status: with kidney complications Diabetes mellitus complication detail: with chronic kidney disease Chronic kidney disease stage: on chronic dialysis Qualified Code(s): E11.22 - Type 2 diabetes mellitus with diabetic chronic kidney disease; N18.6 - End stage renal disease; Z79.4 - assisted (current) use of insulin; Z99.2 - Dependence on renal dialysis Code(s): E11.9 - Type 2 diabetes mellitus without complications Status: Chronic (8) ESRD (end stage renal disease) on dialysis: Code(s): N18.6 - End stage renal disease; Z99.2 - Dependence on renal dialysis Status: Acute Plan Patient presented with respiratory distress and was found to be in acute hypoxic respiratory failure. He was febrile with T-max of 102.4?. He fit sepsis criteria with fever tachypnea, tachycardia and respiratory failure. Chest x-ray was personally reviewed and demonstrated opacities in the lower lobes likely consistent with pneumonia given patient's reported cough and fever. Patient was started on empiric antibiotic therapy with Rocephin and azithromycin. Blood cultures were obtained in the ER. Will continue antibiotic therapy. Will hold off on giving the patient any IV fluids given his history of heart failure. The patient may have some component of fluid overload given that was unable to complete his dialysis session. Will switch is p.o. Lasix to IV. Will monitor fluid status closely. Patient does have a history of diabetes but is relatively euglycemic with glucose levels within target value for hospitalized patients with glucoses of 156. Will place on low-dose sliding scale insulin if needed for hyperglycemia. Hypoglycemia protocol has also been ordered. Patient was placed on a diabetic consistent carbohydrate diet with 1.5 L fluid restriction. Nephrology has been consulted for management of the patient's peritoneal dialysis. Electrolyte panel is currently relatively stable. Will continue to monitor and repeat BMP in a.m.. The patient does have an elevated troponin. Troponin elevation likely due to patient's end-stage renal disease, some component of heart failure and stress from acute hypoxic respiratory failure as well as sepsis in the patient with known history of multivessel coronary disease. Patient is being monitored in IMU due to need for BiPAP and elevated troponin. 10/06/2022 interval history: 72-year-old male with history of end-stage delaney
[2022-10-06 16:03] LABS: Glucose Point of Care 296 mg/dl (65-105)
[2022-10-06 17:25] LABS: Partial Thromboplastin Time 100.1 SECONDS (22.3-36.8)
[2022-10-06] MEDS: dilTIAZem HCL TAB 30 MG, dilTIAZem HCL TAB 60 MG 90 MG PO ×2 (18:12→23:08)
[2022-10-06 20:17] LABS: Glucose Point of Care 483 mg/dl (65-105)
[2022-10-06] MEDS: ISOSORBIDE MONONITRATE 30 MG TAB.ER.24H PO (20:51)
[2022-10-06] MEDS: cefTRIAXone 2 GM/NS 100 ML 2 GM/100 ML BAG IVPB (20:51)
[2022-10-06] MEDS: INSULIN ASPART (*BKC) 100 UNITS/ML 8 UNITS SUB-Q (20:52)
[2022-10-06] MEDS: hydrALAZINE HCL 50 MG TABLET PO (20:52)
[2022-10-06] MEDS: HEPARIN SOD/D5W 100 UNITS/ML 25,000 UNITS/250 ML BAG 12 UNITS IV CONT (22:06)
[2022-10-06] MEDS: ALPRAZolam (*CRX) 0.25 MG TABLET PO (22:09)
[2022-10-06 23:18] LABS: Glucose Point of Care 217 mg/dl (65-105)
[2022-10-07] VITALS (27 sets, daily range): BP systolic 117–162; BP diastolic 73–128; PULSE 70–141; RESP 16–20; TEMP 35.7–37.2; O2SAT 96–100
[2022-10-07] MEDS: IPRATROPIUM BR 0.02% INH SOLN 0.5 MG/2.5 ML VIAL INHALATION ×6 (00:05→21:35)
[2022-10-07] MEDS: LEVALBUTEROL NEB 1.25 MG/3 ML INHALATION ×6 (00:05→21:35)
[2022-10-07 00:07] LABS: Partial Thromboplastin Time 68.9 SECONDS (22.3-36.8)
[2022-10-07] MEDS: HEPARIN SODIUM 5,000 UNITS/ML VIAL 2500 UNITS IV PUSH (00:14)
--- NOTE | 2022-10-07 04:07 | PCRCNOTE ---
pt's family brought in home cpap machine. RT had pt sign release of liability. document in pt physical chart
[2022-10-07] MEDS: dilTIAZem HCL TAB 30 MG, dilTIAZem HCL TAB 60 MG 90 MG PO (05:39)
[2022-10-07 07:18] LABS: Hematocrit 26.6 % (42.0-52.0); Hemoglobin 8.3 g/dL (14.0-18.0); Mean Corpuscular HGB Conc 31.2 g/dl (32-36); Mean Corpuscular Hemoglobin 30.2 pg (26-34); Mean Corpuscular Volume 96.7 fl (80-100); Mean Platelet Volume 10.4 fl (7.4-10.4); Platelet Count Result 264 k/mm3 (150-375); Red Blood Count 2.75 M/mm3 (4.6-6.20); White Blood Count 4.6 K/mm3 (4.5-10.0)
[2022-10-07 07:31] LABS: Albumin Level 3.1 g/dL (3.5-5.1); Anion Gap 8 mmol/L (8-16); Blood Urea Nitrogen 98 mg/dL (9-20); Calcium 8.1 mg/dL (8.4-10.2); Carbon Dioxide 24 mmol/L (22-30); Chloride 96 mmol/L (98-107); Estimated CRCL calculation 6 ml/min; Estimated Glomerular Filt Rate 6; Glucose 287 mg/dL (65-110); Magnesium 2.2 mg/dL (1.6-2.3); Phosphorus 6.8 mg/dL (2.5-4.5); Potassium 3.9 mmol/L (3.4-5.0); Sodium 128 mmol/L (137-145)
[2022-10-07] MEDS: BUDESONIDE RESPULE NEB 0.5 MG/2 ML AMP INHALATION ×2 (07:31→21:35)
[2022-10-07 07:39] LABS: Partial Thromboplastin Time 119.6 SECONDS (22.3-36.8)
[2022-10-07 07:58] LABS: Glucose Point of Care 288 mg/dl (65-105)
[2022-10-07] MEDS: cloNIDine HCL 0.1 MG TABLET PO ×2 (08:22→20:33)
[2022-10-07] MEDS: TAMSULOSIN HCL 0.4 MG CAPSULE PO (08:22)
[2022-10-07] MEDS: SEVELAMER CARBONATE 800 MG TABLET PO ×3 (08:22→17:20)
[2022-10-07] MEDS: INSULIN ASPART (*BKC) 100 UNITS/ML SUB-Q ×3 (08:22→20:34)
[2022-10-07] MEDS: amLODIPine BESYLATE 2.5 MG TABLET PO (08:22)
[2022-10-07] MEDS: FUROSEMIDE INJ 40 MG/4 ML VIAL IV PUSH ×2 (08:22→17:20)
[2022-10-07] MEDS: FERROUS SULFATE 325 MG TABLET DR PO ×2 (08:22→17:20)
[2022-10-07] MEDS: NEOMYCIN/POLYMYXIN/BACITRACIN OINTMENT 15 GM TUBE 1 APPLIC TOPICAL (08:23)
--- NOTE | 2022-10-07 09:01 | PM.PNCARD ---
Progress Note: A&P Assessment and Plan (1) New onset atrial fibrillation: Code(s): I48.91 - Unspecified atrial fibrillation Status: Acute Assessment and Plan: New onset of atrial fibrillation 10/04/22. Will change short-acting diltiazem to Cardizem CD 240 mg p.o. daily. in regards to anticoagulation, he has a high [id number] score which warrants antigoagulation. DC heparin drip and start Eliquis 5 mg p.o. b.i.d.. 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 He remains on aspirin only which should be continued. (2) Hypertension: Code(s): I10 - Essential (primary) hypertension Status: Chronic Assessment and Plan: Reasonably controlled (3) End stage renal disease: Code(s): N18.6 - End stage renal disease Status: Chronic Assessment and Plan: On peritoneal dialysis followed by Nephrology (4) COPD exacerbation: Code(s): J44.1 - Chronic obstructive pulmonary disease with (acute) exacerbation Status: Acute (5) DAVON on CPAP: Code(s): G47.33 - Obstructive sleep apnea (adult) (pediatric) Status: Acute Assessment and Plan: Compliant (6) Coronary artery disease: Code(s): I25.10 - Atherosclerotic heart disease of [place] coronary artery without angina pectoris Status: Acute Assessment and Plan: Does have exertional angina but none at rest. Troponins are elevated and likely is secondary to type [address]-elevation myocardial infarction related to demand ischemia from his AF with ventricular response. He has no chest pain at present. Troponins are trending down. Medically managed as an inpatient but will need outpatient follow-up soon upon discharge with Dr. Dinero. Subjective Date/time seen: 10/07/22 09:01 Interval history: Cardiology follow up for atrial fibrillation Date of service 10/07/2022: Anxious to go home. No chest pain, shortness of breath, swelling Review of Systems Review of Systems: All systems reviewed & are unremarkable except as noted in HPI and below Constitutional: Constitutional: Denies body ache(s), Denies excessive sweating and Denies headache(s) Eyes: Eyes: Denies blurry vision ENT: Reports Normal hearing present and Denies headache(s) Cardiovascular: Cardiovascular: Denies chest pain and Reports dyspnea Respiratory: Respiratory: Reports dyspnea Gastrointestinal: Gastrointestinal: Denies abdominal pain Genitourinary: Genitourinary: Denies hematuria Musculoskeletal: Musculoskeletal: Denies back pain Integumentary/Breasts: Skin/Breast: Reports wounds Neurologic: Reports Normal hearing present and Denies headache(s) Psychiatric: Psychiatric: Denies anxiety Endocrine: Endocrine: Denies excessive sweating Hematologic/Lymphatic: Hematologic/Lymphatic: Denies easy bleeding Allergic/Immunologic: Allergic/Immunologic: Denies GI upset with certain foods Exam Narrative: Awake alert oriented appears stated age Const: General: comfortable and no acute distress HENMT: Face/Nose/Sinus: Normal nares present Eyes: Sclera: sclerae normal Other: Enucleated left eye Neck: Neck: supple Chest: Other: No chest wall pain to palpation Resp: Effort & Inspection: normal respiratory effort Auscultation: rales and diminished lung sounds Cardio: Rate: tachycardic Rhythm: abnormal rhythm irregularly irregular Heart sounds: Murmur heart sound present GI: Inspection: non-distended Auscultation: normal bowel sounds Skin: General skin exam: normal color and wounds noted Wounds: wounds noted Neuro: Cranial nerves: Yes Normal hearing present Speech: normal speech Motor exam (neuro): 5/5 motor strength present throughout Extrem: General: no edema Psych: Mental Status: mental status grossly normal Affect: normal affect Objective Data Vital Signs Vital Signs: Vital Signs - 24 hr 10/06/22 10:41 10/06/22 10:42 10/06/22 10:00 Temperature Pulse Rate
[2022-10-07 12:00] LABS: Glucose Point of Care 159 mg/dl (65-105)
[2022-10-07] MEDS: APIXABAN 5 MG TABLET PO ×2 (12:02→20:34)
--- NOTE | 2022-10-07 12:20 | P.PNNP_ITS ---
Progress Note: A&P Assessment and Plan (1) End stage renal disease: Code(s): N18.6 - End stage renal disease Status: Chronic Assessment and Plan: * continue CCPD * follow electrolytes, volume status, and clearance * continue diuretics (has residual renal function) (2) Sepsis: Qualifiers: Sepsis type: sepsis due to unspecified organism Sepsis acute organ dysfunction status: with acute organ dysfunction Severe sepsis acute organ dysfunction type: acute respiratory failure Acute respiratory failure type: with hypoxia Severe sepsis shock status: without septic shock Qualified Code(s): A41.9 - Sepsis, unspecified organism; R65.20 - Severe sepsis without septic shock; J96.01 - Acute respiratory failure with hypoxia Code(s): A41.9 - Sepsis, unspecified organism Status: Acute Assessment and Plan: * as evidence by fever tachypnea, tachycardia and respiratory failure with associated hypoxia on admission * presumed source is pneumonia (based on imaging to date) * blood cultures negative so far * on antibiotics (3) Acute respiratory failure with hypoxia: Code(s): J96.01 - Acute respiratory failure with hypoxia Status: Acute Assessment and Plan: * suspet multifactorial: * COPD exacerbation * pneumonia * known history of DAVON * mild component of fluid issues * supplemental oxygen as needed * BiPAP support PRN * continue current therapy (4) Pneumonia: Qualifiers: Pneumonia type: due to unspecified organism Laterality: bilateral Lung location: lower lobe of lung Qualified Code(s): J18.9 - Pneumonia, unspecified organism Code(s): J18.9 - Pneumonia, unspecified organism Status: Acute Assessment and Plan: * based on admission imaging and clinical symptoms * respiratory support * on Zithromax and ceftriaxone * cultures negative so far (5) New onset atrial fibrillation: Code(s): I48.91 - Unspecified atrial fibrillation Status: Acute Assessment and Plan: * rate control with diltiazem * on anticoagulation (heparin gtt) * Cardiology following (6) Hypertension: Code(s): I10 - Essential (primary) hypertension Status: Chronic Assessment and Plan: * running on the high side * lisinopril just added * follow trend of hemodynamics (7) Anemia: Code(s): D64.9 - Anemia, unspecified Status: Chronic Assessment and Plan: * due to ESRD and possibly acute illness * Epogen 3x/week while hospitalized * follow trend of H/H (8) Diabetes mellitus: Qualifiers: Diabetes mellitus type: type 2 Diabetes mellitus intermediate frame tender insulin use: with fpc use Diabetes mellitus complication status: with kidney complications Diabetes mellitus complication detail: with chronic kidney disease Chronic kidney disease stage: on chronic dialysis Qualified Code(s): E11.22 - Type 2 diabetes mellitus with diabetic chronic kidney disease; N18.6 - End stage renal disease; 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 Subjective Date/time seen: 10/07/22 12:20 Interval history: Follow-up for end stage renal disease on peritoneal dialysis. Tolerated CCPD treatment overnight without any issues or problems; his breathi
--- NOTE | 2022-10-07 12:20 | PM.PNNEP ---
Progress Note: A&P Assessment and Plan (1) End stage renal disease: Code(s): N18.6 - End stage renal disease Status: Chronic Assessment and Plan: continue CCPD follow electrolytes, volume status, and clearance continue diuretics (has residual renal function) (2) Sepsis: Qualifiers: Sepsis type: sepsis due to unspecified organism Sepsis acute organ dysfunction status: with acute organ dysfunction Severe sepsis acute organ dysfunction type: acute respiratory failure Acute respiratory failure type: with hypoxia Severe sepsis shock status: without septic shock Qualified Code(s): A41.9 - Sepsis, unspecified organism; R65.20 - Severe sepsis without septic shock; J96.01 - Acute respiratory failure with hypoxia Code(s): A41.9 - Sepsis, unspecified organism Status: Acute Assessment and Plan: as evidence by fever tachypnea, tachycardia and respiratory failure with associated hypoxia on admission presumed source is pneumonia (based on imaging to date) blood cultures negative so far on antibiotics (3) Acute respiratory failure with hypoxia: Code(s): J96.01 - Acute respiratory failure with hypoxia Status: Acute Assessment and Plan: suspet multifactorial: COPD exacerbation pneumonia known history of DAVON mild component of fluid issues supplemental oxygen as needed BiPAP support PRN continue current therapy (4) Pneumonia: Qualifiers: Pneumonia type: due to unspecified organism Laterality: bilateral Lung location: lower lobe of lung Qualified Code(s): J18.9 - Pneumonia, unspecified organism Code(s): J18.9 - Pneumonia, unspecified organism Status: Acute Assessment and Plan: based on admission imaging and clinical symptoms respiratory support on Zithromax and ceftriaxone cultures negative so far (5) New onset atrial fibrillation: Code(s): I48.91 - Unspecified atrial fibrillation Status: Acute Assessment and Plan: rate control with diltiazem on anticoagulation (heparin gtt) Cardiology following (6) Hypertension: Code(s): I10 - Essential (primary) hypertension Status: Chronic Assessment and Plan: running on the high side lisinopril just added follow trend of hemodynamics (7) Anemia: Code(s): D64.9 - Anemia, unspecified Status: Chronic Assessment and Plan: due to ESRD and possibly acute illness Epogen 3x/week while hospitalized follow trend of H/H (8) Diabetes mellitus: Qualifiers: Diabetes mellitus type: type 2 Diabetes mellitus snf insulin use: with snf use Diabetes mellitus complication status: with kidney complications Diabetes mellitus complication detail: with chronic kidney disease Chronic kidney disease stage: on chronic dialysis Qualified Code(s): E11.22 - Type 2 diabetes mellitus with diabetic chronic kidney disease; N18.6 - End stage renal disease; 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 Subjective Date/time seen: 10/07/22 12:20 Interval history: Follow-up for end stage renal disease on peritoneal dialysis. Tolerated CCPD treatment overnight without any issues or problems; his breathing/respiratory status contiues to improvem/stabilize with current interventions; only real complaint is that of weakness; anxious for discharge when able. Exam Narrative: General: elderly male in NAD Heart: IRRR, tachycardic normal S1 and S2; no rub Lungs: coarse breath sounds Abdomen: soft, nontender, nondistended, positive bowel sounds Extremities: no cyanosis or clubbing; trace - 1+ edema Skin: no rash Objective Data Vital Signs Vital Si
--- NOTE | 2022-10-07 14:58 | PM.IMPN ---
Progress Note: A&P Assessment and Plan (1) Sepsis: Qualifiers: Sepsis type: sepsis due to unspecified organism Sepsis acute organ dysfunction status: with acute organ dysfunction Severe sepsis acute organ dysfunction type: acute respiratory failure Acute respiratory failure type: with hypoxia Severe sepsis shock status: without septic shock Qualified Code(s): A41.9 - Sepsis, unspecified organism; R65.20 - Severe sepsis without septic shock; J96.01 - Acute respiratory failure with hypoxia Code(s): A41.9 - Sepsis, unspecified organism Status: Acute Assessment and Plan: 72-year-old male with history of end-stage renal disease on PD, presented with cough shortness of breath and fever suspect patient may have pneumonia as well as volume overload as the patient was not able to complete his dialysis, patient is being treated with azithromycin and ceftriaxone for community-acquired pneumonia, however on 10/03 patient was still complained of shortness breath and lung sounds wheezy and rhonchi, gave short course of methylprednisone 40 mg x1 as patient has diabetes,, continue bronchodilator and add Pulmicort, on 10/04 patient stated he was not as short of breath, however patient on 10/04 went into A. Fib, seen by coin machine service repairer and started patient diltiazem and heprin for anticoagulation will also be seen his quality worker and will have PD tonight will continue to monitor and further recommendation to follow. cardiac medications have been adjusted for AF cardiology signed off unfortunately pt still appears wheezy and SOB today continue breathing treatments and consider DC soon Cxr ordered for juan a AM (2) Acute respiratory failure with hypoxia: Code(s): J96.01 - Acute respiratory failure with hypoxia Status: Acute (3) Pneumonia: Qualifiers: Pneumonia type: due to unspecified organism Laterality: bilateral Lung location: lower lobe of lung Qualified Code(s): J18.9 - Pneumonia, unspecified organism Code(s): J18.9 - Pneumonia, unspecified organism Status: Acute (4) Peritoneal dialysis catheter in place: Code(s): Z99.2 - Dependence on renal dialysis Status: Acute (5) COPD exacerbation: Code(s): J44.1 - Chronic obstructive pulmonary disease with (acute) exacerbation Status: Acute (6) DAVON on CPAP: Code(s): G47.33 - Obstructive sleep apnea (adult) (pediatric) Status: Acute (7) Diabetes mellitus: Qualifiers: Diabetes mellitus type: type 2 Diabetes mellitus fdc insulin use: with fdc use Diabetes mellitus complication status: with kidney complications Diabetes mellitus complication detail: with chronic kidney disease Chronic kidney disease stage: on chronic dialysis Qualified Code(s): E11.22 - Type 2 diabetes mellitus with diabetic chronic kidney disease; N18.6 - End stage renal disease; Z79.4 - [facility] (current) use of insulin; Z99.2 - Dependence on renal dialysis Code(s): E11.9 - Type 2 diabetes mellitus without complications Status: Chronic (8) ESRD (end stage renal disease) on dialysis: Code(s): N18.6 - End stage renal disease; Z99.2 - Dependence on renal dialysis Status: Acute Subjective Date/time seen: 10/07/22 14:58 Interval history: 72-year-old male with history of end-stage renal disease on PD, presented with cough shortness of breath and fever suspect patient may have pneumonia as well as volume overload as the patient was not able to complete his dialysis, patient is being treated with azithromycin and ceftriaxone for community-acquired pneumonia, however on 10/03 patient was still complained of shortness breath and lung sounds wheezy and rhonchi, gave short course of methylprednisone 40 mg x1 as patient has diabetes,, continue bronchodilator and add Pulmicort, on 10/04 patient stated he was not as short of breath, however patient on 10/04 went into A. Fib, seen by coin machine service repairer and
[2022-10-07 16:17] LABS: Glucose Point of Care 272 mg/dl (65-105)
[2022-10-07 18:22] LABS: Hematocrit 30.7 % (42.0-52.0); Hemoglobin 9.4 g/dL (14.0-18.0); Mean Corpuscular HGB Conc 30.6 g/dl (32-36); Mean Corpuscular Hemoglobin 29.2 pg (26-34); Mean Corpuscular Volume 95.3 fl (80-100); Platelet Count Result 293 k/mm3 (150-375); Red Blood Count 3.22 M/mm3 (4.6-6.20); Red Cell Distribution Width 16.6 % (11.5-14.5); White Blood Count 4.1 K/mm3 (4.5-10.0)
[2022-10-07 18:27] LABS: Anion Gap 12 mmol/L (8-16); Blood Urea Nitrogen 103 mg/dL (9-20); Calcium 8.2 mg/dL (8.4-10.2); Carbon Dioxide 26 mmol/L (22-30); Chloride 94 mmol/L (98-107); Estimated CRCL calculation 7 ml/min; Estimated Glomerular Filt Rate 6; Glucose 269 mg/dL (65-110); Potassium 4.4 mmol/L (3.4-5.0); Sodium 132 mmol/L (137-145)
[2022-10-07 19:50] LABS: Glucose Point of Care 278 mg/dl (65-105)
[2022-10-07] MEDS: cefTRIAXone 2 GM/NS 100 ML 2 GM/100 ML BAG IVPB (20:33)
[2022-10-07] MEDS: ISOSORBIDE MONONITRATE 30 MG TAB.ER.24H PO (20:34)
[2022-10-07] MEDS: hydrALAZINE HCL 50 MG TABLET PO (20:34)
[2022-10-07] MEDS: ALPRAZolam (*CRX) 0.25 MG TABLET PO (21:36)
[2022-10-07] MEDS: dilTIAZem HCL CD 240 MG CAP.24HR PO (22:42)
[2022-10-08] VITALS (21 sets, daily range): BP systolic 112–161; BP diastolic 92–95; PULSE 50–140; RESP 16–22; TEMP 36.1–36.2; O2SAT 90–100
[2022-10-08] MEDS: LEVALBUTEROL NEB 1.25 MG/3 ML INHALATION ×5 (00:11→16:05)
[2022-10-08] MEDS: IPRATROPIUM BR 0.02% INH SOLN 0.5 MG/2.5 ML VIAL INHALATION ×5 (00:11→16:05)
[2022-10-08] MEDS: dilTIAZem HCL 30 MG TABLET PO (01:27)
[2022-10-08] MEDS: dilTIAZem HCl INJ 25 MG/5 ML VIAL 20 MG IV PUSH (03:41)
[2022-10-08 04:51] LABS: Hematocrit 30.8 % (42.0-52.0); Hemoglobin 9.3 g/dL (14.0-18.0); Mean Corpuscular HGB Conc 30.2 g/dl (32-36); Mean Corpuscular Hemoglobin 29.1 pg (26-34); Mean Corpuscular Volume 96.3 fl (80-100); Mean Platelet Volume 10.6 fl (7.4-10.4); Platelet Count Result 313 k/mm3 (150-375); Red Cell Distribution Width 16.7 % (11.5-14.5)
[2022-10-08 05:02] LABS: Albumin Level 3.4 g/dL (3.5-5.1); Anion Gap 13 mmol/L (8-16); Blood Urea Nitrogen 95 mg/dL (9-20); Calcium 8.6 mg/dL (8.4-10.2); Carbon Dioxide 24 mmol/L (22-30); Chloride 96 mmol/L (98-107); Estimated CRCL calculation 6 ml/min; Estimated Glomerular Filt Rate 6; Glucose 283 mg/dL (65-110); Magnesium 2.2 mg/dL (1.6-2.3); Phosphorus 6.2 mg/dL (2.5-4.5); Potassium 4.2 mmol/L (3.4-5.0); Sodium 133 mmol/L (137-145)
[2022-10-08 05:03] LABS: Anion Gap 10 mmol/L (8-16); Blood Urea Nitrogen 94 mg/dL (9-20); Calcium 8.4 mg/dL (8.4-10.2); Carbon Dioxide 24 mmol/L (22-30); Chloride 96 mmol/L (98-107); Estimated CRCL calculation 6 ml/min; Estimated Glomerular Filt Rate 6; Glucose 286 mg/dL (65-110); Potassium 4.1 mmol/L (3.4-5.0); Sodium 130 mmol/L (137-145)
[2022-10-08] MEDS: BUDESONIDE RESPULE NEB 0.5 MG/2 ML AMP INHALATION (07:30)
[2022-10-08 08:25] LABS: Glucose Point of Care 277 mg/dl (65-105)
[2022-10-08] MEDS: INSULIN ASPART (*BKC) 100 UNITS/ML SUB-Q ×2 (08:53→12:34)
[2022-10-08] MEDS: APIXABAN 5 MG TABLET PO (08:54)
[2022-10-08] MEDS: TAMSULOSIN HCL 0.4 MG CAPSULE PO (08:54)
[2022-10-08] MEDS: cloNIDine HCL 0.1 MG TABLET PO (08:54)
[2022-10-08] MEDS: SEVELAMER CARBONATE 800 MG TABLET PO ×2 (08:54→12:34)
[2022-10-08] MEDS: FERROUS SULFATE 325 MG TABLET DR PO (08:54)
[2022-10-08] MEDS: FUROSEMIDE INJ 40 MG/4 ML VIAL IV PUSH (08:55)
--- NOTE | 2022-10-08 08:59 | PM.PNCARD ---
Progress Note: A&P Assessment and Plan (1) New onset atrial fibrillation: Code(s): I48.91 - Unspecified atrial fibrillation Status: Acute Assessment and Plan: New onset of atrial fibrillation 10/04/22. Will increase diltiazem to 360 mg daily. Will once again discontinue IV diltiazem. Continue Eliquis for anticoagulation. DC heparin drip and start Eliquis 5 mg p.o. b.i.d.. 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 Dinero his primary promotional demonstrator. He remains on aspirin only which should be continued. If his heart rate is reasonably well controlled throughout the afternoon on this regimen, he can be discharged for follow-up with his primary promotional demonstrator. (2) Hypertension: Code(s): I10 - Essential (primary) hypertension Status: Chronic Assessment and Plan: Reasonably controlled (3) End stage renal disease: Code(s): N18.6 - End stage renal disease Status: Chronic Assessment and Plan: On peritoneal dialysis followed by Nephrology (4) COPD exacerbation: Code(s): J44.1 - Chronic obstructive pulmonary disease with (acute) exacerbation Status: Acute (5) DAVON on CPAP: Code(s): G47.33 - Obstructive sleep apnea (adult) (pediatric) Status: Acute Assessment and Plan: Compliant (6) Coronary artery disease: Code(s): I25.10 - Atherosclerotic heart disease of [place] coronary artery without angina pectoris Status: Acute Assessment and Plan: Does have exertional angina but none at rest. Troponins are elevated and likely is secondary to type [address]-elevation myocardial infarction related to demand ischemia from his AF with ventricular response. He has no chest pain at present. Troponins are trending down. Medically managed as an inpatient but will need outpatient follow-up soon upon discharge with Dr. Dinero. Subjective Date/time seen: 10/08/22 08:59 Interval history: Cardiology follow up for atrial fibrillation Date of service 10/08/2022: He had mildly elevated heart rate yesterday. Last night heart rate did increase further and he was started back on a diltiazem drip and was given his oral diltiazem early. He still feels fine without any chest pain or shortness of breath. Increasingly irritable Review of Systems Review of Systems: All systems reviewed & are unremarkable except as noted in HPI and below Constitutional: Constitutional: Denies body ache(s), Denies excessive sweating and Denies headache(s) Eyes: Eyes: Denies blurry vision ENT: Reports Normal hearing present and Denies headache(s) Cardiovascular: Cardiovascular: Denies chest pain and Reports dyspnea Respiratory: Respiratory: Reports dyspnea Gastrointestinal: Gastrointestinal: Denies abdominal pain Genitourinary: Genitourinary: Denies hematuria Musculoskeletal: Musculoskeletal: Denies back pain Integumentary/Breasts: Skin/Breast: Reports wounds Neurologic: Reports Normal hearing present and Denies headache(s) Psychiatric: Psychiatric: Denies anxiety Endocrine: Endocrine: Denies excessive sweating Hematologic/Lymphatic: Hematologic/Lymphatic: Denies easy bleeding Allergic/Immunologic: Allergic/Immunologic: Denies GI upset with certain foods Exam Narrative: Awake alert oriented appears stated age Const: General: comfortable and no acute distress HENMT: Face/Nose/Sinus: Normal nares present Eyes: Sclera: sclerae normal Other: Enucleated left eye Neck: Neck: supple Chest: Other: No chest wall pain to palpation Resp: Effort & Inspection: normal respiratory effort Auscultation: rales and diminished lung sounds Cardio: Rate: tachycardic Rhythm: abnormal rhythm irregularly irregular Heart sounds: Murmur heart sound present GI: Inspection: non-distended Auscultation: normal bowel sounds Skin: General skin exam: normal color and wounds noted Wounds: wounds noted Neuro: Cranial nerves: Yes Normal hearing present Speech: normal spe
[2022-10-08] MEDS: dilTIAZem HCL CD 180 MG CAP.24HR 360 MG PO (09:35)
--- NOTE | 2022-10-08 10:38 | PM.IMPN ---
Progress Note: A&P Assessment and Plan (1) Sepsis: Qualifiers: Acute respiratory failure type: with hypoxia Sepsis acute organ dysfunction status: with acute organ dysfunction Sepsis type: sepsis due to unspecified organism Severe sepsis acute organ dysfunction type: acute respiratory failure Severe sepsis shock status: without septic shock Qualified Code(s): A41.9 - Sepsis, unspecified organism; R65.20 - Severe sepsis without septic shock; J96.01 - Acute respiratory failure with hypoxia Code(s): A41.9 - Sepsis, unspecified organism Status: Acute Assessment and Plan: 10/08/2022: 72-year-old male with history of end-stage renal disease on peritoneal dialysis presented with cough shortness of breath and fever. Chest x-ray on admission with probable minimal bibasilar pulmonary edema. Possible pneumonia empirically treated with ceftriaxone azithromycin. Procalcitonin was Normal. On 10/03 patient still complain of shortness of breath and lung sounded wheezy and rhonchi give short course of methylprednisolone 40 mg x 1 continue bronchodilators in added Pulmicort. On 10/04 patient felt better however went into AFib. Cardiology was consulted and started on diltiazem and heparin drip. Chest x-ray DM with questionable minimal bibasilar pulmonary edema nephrology following chronic respiratory failure on home oxygen 2 L mild troponin elevation on admission subsequent rise on 10/04 to 1 suggesting Non-STEMI. Likely type 2 due to demand ischemia from [place] [address]. Echocardiogram 10/05/2022: Severe concentric left LVH with normal systolic function. Biatrial dilation. Mild aortic stenosis. Atrial fibrillation noted. No significant valvular abnormality. He has been diuresed with 40 mg IV b.i.d. since admission on 10/02/2022. Mild hyponatremia chronic stable. Chronic mild anemia with no signs of bleeding. Likely due to underlying end-stage renal disease. Blood sugar in 200s. Has underlying type 2 diabetes. On insulin sliding scale likely exacerbated by steroid use. Atrial fibrillation still ongoing. Uptitrated cardizem. Eliquis started. Patient heart rate ranging in between 90-110 reasonable control with current Cardizem oral he is opting to go back to see his regular test director for his AFib and further care. (2) Acute respiratory failure with hypoxia: Code(s): J96.01 - Acute respiratory failure with hypoxia Status: Acute (3) Pneumonia: Qualifiers: Laterality: bilateral Lung location: lower lobe of lung Pneumonia type: due to unspecified organism Qualified Code(s): J18.9 - Pneumonia, unspecified organism Code(s): J18.9 - Pneumonia, unspecified organism Status: Acute (4) Peritoneal dialysis catheter in place: Code(s): Z99.2 - Dependence on renal dialysis Status: Acute (5) COPD exacerbation: Code(s): J44.1 - Chronic obstructive pulmonary disease with (acute) exacerbation Status: Acute (6) DAVON on CPAP: Code(s): G47.33 - Obstructive sleep apnea (adult) (pediatric) Status: Acute (7) Diabetes mellitus: Qualifiers: Chronic kidney disease stage: on chronic dialysis Diabetes mellitus complication detail: with chronic kidney disease Diabetes mellitus complication status: with kidney complications Diabetes mellitus local intermodal truck driver insulin use: with local intermodal truck driver use Diabetes mellitus type: type 2 Qualified Code(s): E11.22 - Type 2 diabetes mellitus with diabetic chronic kidney disease; N18.6 - End stage renal disease; Z79.4 - [facility] (current) use of insulin; Z99.2 - Dependence on renal dialysis Code(s): E11.9 - Type 2 diabetes mellitus without complications Status: Chronic (8) ESRD (end stage renal disease) on dialysis: Code(s): N18.6 - End stage renal disease; Z99.2 - Dependence on renal dialysis Status: Acute Subjective Date/time seen: 10/08/22 10:38 Interval hist
--- NOTE | 2022-10-08 11:30 | PM.PNNEP ---
Progress Note: A&P Assessment and Plan (1) End stage renal disease: Code(s): N18.6 - End stage renal disease Status: Chronic Assessment and Plan: continue CCPD follow electrolytes, volume status, and clearance continue diuretics (has residual renal function) (2) Sepsis: Qualifiers: Acute respiratory failure type: with hypoxia Sepsis acute organ dysfunction status: with acute organ dysfunction Sepsis type: sepsis due to unspecified organism Severe sepsis acute organ dysfunction type: acute respiratory failure Severe sepsis shock status: without septic shock Qualified Code(s): A41.9 - Sepsis, unspecified organism; R65.20 - Severe sepsis without septic shock; J96.01 - Acute respiratory failure with hypoxia Code(s): A41.9 - Sepsis, unspecified organism Status: Acute Assessment and Plan: as evidence by fever tachypnea, tachycardia and respiratory failure with associated hypoxia on admission presumed source is pneumonia (based on imaging to date) blood cultures negative so far on antibiotics (3) Acute respiratory failure with hypoxia: Code(s): J96.01 - Acute respiratory failure with hypoxia Status: Acute Assessment and Plan: suspet multifactorial: COPD exacerbation pneumonia known history of DAVON mild component of fluid issues supplemental oxygen as needed BiPAP support PRN continue current therapy (4) Pneumonia: Qualifiers: Laterality: bilateral Lung location: lower lobe of lung Pneumonia type: due to unspecified organism Qualified Code(s): J18.9 - Pneumonia, unspecified organism Code(s): J18.9 - Pneumonia, unspecified organism Status: Acute Assessment and Plan: based on admission imaging and clinical symptoms respiratory support on Zithromax and ceftriaxone cultures negative so far (5) New onset atrial fibrillation: Code(s): I48.91 - Unspecified atrial fibrillation Status: Acute Assessment and Plan: rate control with diltiazem on anticoagulation Cardiology following (6) Hypertension: Code(s): I10 - Essential (primary) hypertension Status: Chronic Assessment and Plan: doing better at this time follow trend of hemodynamics (7) Anemia: Code(s): D64.9 - Anemia, unspecified Status: Chronic Assessment and Plan: due to ESRD and possibly acute illness Epogen 3x/week while hospitalized follow trend of H/H (8) Diabetes mellitus: Qualifiers: Chronic kidney disease stage: on chronic dialysis Diabetes mellitus complication detail: with chronic kidney disease Diabetes mellitus complication status: with kidney complications 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 Subjective Date/time seen: 10/08/22 11:30 Interval history: Follow-up for end stage renal disease on peritoneal dialysis. CCPD treatment overnight was without issues or problems with ultrafiltration of 934cc; breathing/respiratory status seems stable if not improved; no apparent distress voiced; no events overnight or earlier this morning. Exam Narrative: General: elderly male in NAD Heart: IRRR, tachycardic normal S1 and S2; no rub Lungs: coarse breath sounds Abdomen: soft, nontender, nondistended, positive bowel sounds Extremities: no cyanosis or clubbing; trace - 1+ edema Skin: no nodules Objective Data Vital Signs Vital Signs: Vital Signs Temp Pulse Resp BP P
--- NOTE | 2022-10-08 11:30 | P.PNNP_ITS ---
Progress Note: A&P Assessment and Plan (1) End stage renal disease: Code(s): N18.6 - End stage renal disease Status: Chronic Assessment and Plan: * continue CCPD * follow electrolytes, volume status, and clearance * continue diuretics (has residual renal function) (2) Sepsis: Qualifiers: Acute respiratory failure type: with hypoxia Sepsis acute organ dysfunction status: with acute organ dysfunction Sepsis type: sepsis due to unspecified organism Severe sepsis acute organ dysfunction type: acute respiratory failure Severe sepsis shock status: without septic shock Qualified Code(s): A41.9 - Sepsis, unspecified organism; R65.20 - Severe sepsis without septic shock; J96.01 - Acute respiratory failure with hypoxia Code(s): A41.9 - Sepsis, unspecified organism Status: Acute Assessment and Plan: * as evidence by fever tachypnea, tachycardia and respiratory failure with associated hypoxia on admission * presumed source is pneumonia (based on imaging to date) * blood cultures negative so far * on antibiotics (3) Acute respiratory failure with hypoxia: Code(s): J96.01 - Acute respiratory failure with hypoxia Status: Acute Assessment and Plan: * suspet multifactorial: * COPD exacerbation * pneumonia * known history of DAVON * mild component of fluid issues * supplemental oxygen as needed * BiPAP support PRN * continue current therapy (4) Pneumonia: Qualifiers: Laterality: bilateral Lung location: lower lobe of lung Pneumonia type: due to unspecified organism Qualified Code(s): J18.9 - Pneumonia, unspecified organism Code(s): J18.9 - Pneumonia, unspecified organism Status: Acute Assessment and Plan: * based on admission imaging and clinical symptoms * respiratory support * on Zithromax and ceftriaxone * cultures negative so far (5) New onset atrial fibrillation: Code(s): I48.91 - Unspecified atrial fibrillation Status: Acute Assessment and Plan: * rate control with diltiazem * on anticoagulation * Cardiology following (6) Hypertension: Code(s): I10 - Essential (primary) hypertension Status: Chronic Assessment and Plan: * doing better at this time * follow trend of hemodynamics (7) Anemia: Code(s): D64.9 - Anemia, unspecified Status: Chronic Assessment and Plan: * due to ESRD and possibly acute illness * Epogen 3x/week while hospitalized * follow trend of H/H (8) Diabetes mellitus: Qualifiers: Chronic kidney disease stage: on chronic dialysis Diabetes mellitus complication detail: with chronic kidney disease Diabetes mellitus complication status: with kidney complications Diabetes mellitus halfway insulin use: with heavy equipment rental manager use Diabetes mellitus type: type 2 Qualified Code(s): E11.22 - Type 2 diabetes mellitus with diabetic chronic kidney disease; N18.6 - End stage renal disease; Z79.4 - skilled nursing (current) use of insulin; Z99.2 - Dependence on renal dialysis Code(s): E11.9 - Type 2 diabetes mellitus without complications Status: Chronic Assessment and Plan: * follow accu-cheks * glycemic control per hospitalists Will continue to follow. Subjective Date/time seen: 10/08/22 11:30 Interval history: Follow-up for end stage renal disease on peritoneal dialysis. CCPD treatment overnight was without issues or problems with ultrafiltration of 934cc; breathing/respiratory status seems
--- NOTE | 2022-10-08 11:31 | PM.DS ---
DS: Admitting Diagnosis Discharge Date 10/08/2022 Admitting Diagnosis Shortness of breath DS: Discharge Diagnosis Discharge Diagnosis (1) Sepsis: Qualifiers: Sepsis type: sepsis due to unspecified organism Sepsis acute organ dysfunction status: with acute organ dysfunction Severe sepsis acute organ dysfunction type: acute respiratory failure Acute respiratory failure type: with hypoxia Severe sepsis shock status: without septic shock Qualified Code(s): A41.9 - Sepsis, unspecified organism; R65.20 - Severe sepsis without septic shock; J96.01 - Acute respiratory failure with hypoxia Code(s): A41.9 - Sepsis, unspecified organism Status: Acute (2) Acute respiratory failure with hypoxia: Code(s): J96.01 - Acute respiratory failure with hypoxia Status: Acute (3) Pneumonia: Qualifiers: Pneumonia type: due to unspecified organism Laterality: bilateral Lung location: lower lobe of lung Qualified Code(s): J18.9 - Pneumonia, unspecified organism Code(s): J18.9 - Pneumonia, unspecified organism Status: Acute (4) Peritoneal dialysis catheter in place: Code(s): Z99.2 - Dependence on renal dialysis Status: Acute (5) COPD exacerbation: Code(s): J44.1 - Chronic obstructive pulmonary disease with (acute) exacerbation Status: Acute (6) DAVON on CPAP: Code(s): G47.33 - Obstructive sleep apnea (adult) (pediatric) Status: Acute (7) Diabetes mellitus: Qualifiers: Diabetes mellitus type: type 2 Diabetes mellitus [facility] insulin use: with intermediate school teacher use Diabetes mellitus complication status: with kidney complications Diabetes mellitus complication detail: with chronic kidney disease Chronic kidney disease stage: on chronic dialysis Qualified Code(s): E11.22 - Type 2 diabetes mellitus with diabetic chronic kidney disease; N18.6 - End stage renal disease; Z79.4 - long term (current) use of insulin; Z99.2 - Dependence on renal dialysis Code(s): E11.9 - Type 2 diabetes mellitus without complications Status: Chronic (8) ESRD (end stage renal disease) on dialysis: Code(s): N18.6 - End stage renal disease; Z99.2 - Dependence on renal dialysis Status: Acute DS: Summary Hospital Course Hospital Course: 72-year-old male with history of end-stage renal disease on peritoneal dialysis presented with cough shortness of breath and fever.? Chest x-ray on admission with probable minimal bibasilar pulmonary edema.? Possible pneumonia empirically treated with ceftriaxone azithromycin.? Procalcitonin was Normal.? On 10/03 patient still complain of shortness of breath and lung sounded wheezy and rhonchi give short course of methylprednisolone 40 mg x 1 continue bronchodilators in added Pulmicort.? On 10/04 patient felt better however went into AFib.? Cardiology was consulted and started on diltiazem and heparin drip.? Chest x-ray DM with questionable minimal bibasilar pulmonary edema nephrology following chronic respiratory failure on home oxygen 2 L mild troponin elevation on admission subsequent rise on 10/04 to 1 suggesting Non-STEMI.? Likely type 2 due to demand ischemia from new [place].? [place] [address].? Echocardiogram 10/05/2022:? Severe concentric left LVH with normal systolic function.? Biatrial dilation.? Mild aortic stenosis.? Atrial fibrillation noted.? No significant valvular abnormality.? He has been diuresed with 40 mg IV b.i.d. since admission on 10/02/2022.? Mild hyponatremia chronic stable.? Chronic mild anemia with no signs of bleeding.? Likely due to underlying end-stage renal disease.? Blood sugar in 200s.? Has underlying type 2 diabetes.? On insulin sliding scale likely exacerbated by steroid use. Atrial fibrillation still ongoing.? Uptitrated cardizem. Eliquis started. Patient heart rate ranging in between 90-110 reasonable control with current Cardizem oral he is opting to go back to see his regular
[2022-10-08 11:43] LABS: Glucose Point of Care 261 mg/dl (65-105)
== END 2022-10-08 16:40 | disposition home or self-care (01) | DRG 871 ==
LOC: ANHED 23:35 → ANHIMU 10-02 01:18
PROVIDERS: Family Medicine; Internal Medicine; Admitting Provider Internal Medicine; Emergency Provider Emergency Medicine; PCP Family Medicine; Visit Provider Internal Medicine
DX: A41.9 Sepsis, unspecified organism (principal); I21.A1 Myocardial infarction type 2; J18.9 Pneumonia, unspecified organism; J96.01 Acute respiratory failure with hypoxia; N18.6 End stage renal disease; J44.0 Chronic obstructive pulmonary disease with (acute) lower respiratory infection; J44.1 Chronic obstructive pulmonary disease with (acute) exacerbation; I13.2 Hypertensive heart and chronic kidney disease with heart failure and with stage 5 chronic kidney disease, or end stage renal disease; I48.92 Unspecified atrial flutter; E87.1 Hypo-osmolality and hyponatremia; J96.10 Chronic respiratory failure, unspecified whether with hypoxia or hypercapnia; I48.91 Unspecified atrial fibrillation; R65.20 Severe sepsis without septic shock; E11.22 Type 2 diabetes mellitus with diabetic chronic kidney disease; I50.9 Heart failure, unspecified; D63.1 Anemia in chronic kidney disease; G47.33 Obstructive sleep apnea (adult) (pediatric); I25.10 Atherosclerotic heart disease of native coronary artery without angina pectoris; I35.0 Nonrheumatic aortic (valve) stenosis; F17.210 Nicotine dependence, cigarettes, uncomplicated; Z99.2 Dependence on renal dialysis; Z66 Do not resuscitate; I87.8 Other specified disorders of veins; R77.8 Other specified abnormalities of plasma proteins; Z79.4 Long term (current) use of insulin; Z87.828 Personal history of other (healed) physical injury and trauma; Z90.01 Acquired absence of eye; Z95.5 Presence of coronary angioplasty implant and graft
CPT/HCPCS: 36415; 36600; 71045; 80048; 80053; 80069; 81001; 82805; 82948; 83605; 83735; 83880; 84100; 84145; 84484; 85025; 85027; 85610; 85730; 87040; 87636; 90945; 93005; 93306; 94002; 94640; 94667; 96365; 96366; 96372; 96375; 99285; A9270; G0378; J0282; J0456; J0696; J1644; J1815; J1940; J2920; Q4081

== ENCOUNTER 2023-10-20 14:37 | Emergency (ER) | payer OTHER, SELFPAY ==
--- NOTE | 2023-10-20 14:50 | ED.CPR ---
HPI - CPR General Chief Complaint: Cardiac Arrest/CPR Stated Complaint: pulseless Time Seen by Provider: 10/20/23 14:48 Source: family Mode of arrival: ambulatory Limitations: clinical condition History of Present Illness HPI narrative: Patient presents by private vehicle. Patient has end-stage renal disease on peritoneal dialysis. He had been having a cough his thought he was congested so a chest x-ray had been ordered and he was to obtain imaging. While was driving, he slumped over. This was reportedly 10-15 minutes prior to arrival. He was pulled/assisted out of the vehicle by hospital staff but he was otherwise unresponsive. ACLS immediately initiated with chest compressions and bag-valve mask ventilation. Related Data Home Medications Medication Instructions Recorded Confirmed ferrous sulfate 325 mg (65 mg 325 mg PO BID 03/13/19 10/02/22 iron) tablet tamsulosin 0.4 mg capsule 0.4 mg PO DAILY 03/13/19 10/02/22 clonidine HCl 0.1 mg tablet 0.1 mg PO Q12H 10/02/22 10/03/22 furosemide 80 mg tablet 80 mg PO BID 10/02/22 10/02/22 hydralazine 50 mg tablet 50 mg PO HS 10/02/22 10/02/22 hydrocodone 5 mg-acetaminophen 325 5 - 325 tablet PO Q6-8H PRN Pain 10/02/22 10/02/22 mg tablet isosorbide mononitrate 30 mg 30 mg PO HS 10/02/22 10/02/22 tablet,extended release 24 hr sevelamer carbonate 800 mg tablet 800 mg PO TIDWMEAL 10/02/22 10/02/22 Allergies Allergy/AdvReac Type Severity Reaction Status Date / Time Sulfa (Sulfonamide Allergy Swelling Verified 03/13/19 14:17 Antibiotics) SAÚL Inhibitors AdvReac Cough Verified 10/03/22 18:19 [facility] Past Medical History Medical History CHF (congestive heart failure) COPD (chronic obstructive pulmonary disease) Coronary artery disease With tortuous LAD, the patient's reports that the patient has 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 He states that he was originally supposed to have bypass surgery but they opted for stent placement. Diabetes mellitus ESRD (end stage renal disease) on dialysis due to DM Essential hypertension DAVON on CPAP Venous stasis dermatitis of both lower extremities Surgical History Surgical History History of eye enucleation left History of heart artery stent (~03/2022) Peritoneal dialysis catheter in place Family History Family History Other Diabetes mellitus Hypertension Social History Social History Social History: The patient lives in [place] with his of 52 years. They have 4 children. 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 He rarely drinks alcohol and only in small amounts. He has smoked anywhere from 0.5 packs per day to 1 pack per day since he was 15 years old. He is down to half pack a day per currently. He denies illicit substance use. Code status: This was discussed in detail with patient and his at bedside. They reported that if he was in a pre code state the with marked central line and pressors. But if he were in cardiac arrest they would not want cardiopulmonary resuscitation. Dose code status has been changed to DNR/DNI. Surrogate decision maker: Smoking packs per day: 0.5 Smoking cigarettes per day: 10.0 Years smoked: 57 Smoking pack-years: 28.50 Smoking status: Current every day smoker Tobacco type: cigarettes Alcohol intake: never Substance use: never Lack of Transportation: No Lack of Food: Never True Current Housing: Decline to Answer Concerned About Future Housing: No Difficulty Paying Gas/Electric Bills: No Difficulty Paying for Meds: No Currently Unemployed: No Education: Decline to Answer Difficulty w/ Childcare or Family Care:
[2023-10-20 14:52] LABS: Glucose Point of Care 156 mg/dl (65-105)
--- NOTE | 2023-10-20 15:48 | PC.NURSE ---
Lead Qa Analyst at bedside at this time.
--- NOTE | 2023-10-21 12:53 | PC.NURSE ---
Patient released by [facility] due to inability to contact family at this time. Nicole at [facility] in [place], [place] notified that patient is released.
== END 2023-10-20 18:00 | disposition expired ==
PROVIDERS: Emergency Provider Student in an Organized Health Care Education/Training Program; PCP Family Medicine
DX: I46.9 Cardiac arrest, cause unspecified (principal); I13.2 Hypertensive heart and chronic kidney disease with heart failure and with stage 5 chronic kidney disease, or end stage renal disease; I50.9 Heart failure, unspecified; N18.6 End stage renal disease; E11.22 Type 2 diabetes mellitus with diabetic chronic kidney disease; I25.10 Atherosclerotic heart disease of native coronary artery without angina pectoris; F17.210 Nicotine dependence, cigarettes, uncomplicated; Z99.2 Dependence on renal dialysis
CPT/HCPCS: 82948; 92950; 99285; J0171